=== PATIENT | female | born 1985 | race Caucasian/White ===

== ENCOUNTER → 2016-11-16 | Outpatient (CLI) | payer OTHER ==
[~2016-11-16] MED LIST: ALBU18002 INH; AMOX875T3 PO; CEPH500C PO; LEVO50TA6 PO; MOME100A INH; OFLO0.3D4 OTL; ONDA4TAB10 SL; PEDICHW50 PO; PROP1TAB PO
--- NOTE | 2016-11-16 12:36 | DIAGNOSTIC IMAGING REPORT ---
ABDOMINAL ULTRASOUND, RIGHT UPPER QUADRANT HISTORY: Left lower quadrant abdominal palpable abnormality. COMPARISON: CT of the abdomen and pelvis January 02, 2014 and abdominal ultrasound January 31, 2014. FINDINGS: No left lower quadrant abdominal wall mass was identified by sonography. No other sonographic abnormality was identified. IMPRESSION: No left lower quadrant abdominal mass identified by sonography. Continued clinical follow up to ensure stability or resolution is recommended. If interval enlargement, repeat ultrasound is recommended. Electronically signed by: Irving Weldon M.D. 11/16/2016 12:34 PM Dictated Date/Time: 11/16/2016 12:33 PM
== END | disposition home or self-care (01) ==
LOC: C.ULTR 11:57
PROVIDERS: ATTEND Obstetrics & Gynecology
DX: R19.04 Left lower quadrant abdominal swelling, mass and lump (principal)

== ENCOUNTER → 2016-11-18 | Outpatient (CLI) | payer OTHER ==
[2016-11-18 18:39] LABS: PREG INTERNAL NEGATIVE QC NEG CLEAR BACKGROUND; PREG INTERNAL POSITIVE QC POS CONTROL LINE
== END | disposition home or self-care (01) ==
LOC: C.LABSPEC 11:46
PROVIDERS: ATTEND Obstetrics & Gynecology
DX: N91.1 Secondary amenorrhea (principal)

== ENCOUNTER → 2016-12-06 | Outpatient (CLI) | payer OTHER ==
[2016-12-06 17:25] LABS: BASO % 0.3 %; BASO ABS # 0.02 K/uL (0-0.2); COMPLETE YES; EOS % 1.8 %; HEMATOCRIT 39.3 % (37-47); IG% 0.1 %; LYMPH % 37.5 %; LYMPH ABS # 2.69 K/uL (1.2-3.4); MEAN CELL VOLUME 82.2 fL (80-100); MEAN CORPUSCULAR HEMOGLOBIN 28.5 pg (25-34); MEAN CORPUSCULAR HGB CONC 34.6 g/dl (32-36); MEAN PLATELET VOLUME 11.5 fL (7.4-10.4); MONO % 6.8 %; NEUT % 53.5 %; PLATELET COUNT 208 K/uL (130-400); RED BLOOD COUNT 4.78 M/uL (4.2-5.4); WHITE BLOOD COUNT 7.17 K/uL (4.8-10.8)
[2016-12-06 17:48] LABS: THYROID STIMULATING HORMONE < 0.005 uIu/ml (0.300-4.500)
== END | disposition home or self-care (01) ==
LOC: C.LABBFT 14:56
PROVIDERS: ATTEND Internal Medicine
DX: D64.9 Anemia, unspecified (principal); R63.1 Polydipsia

== ENCOUNTER → 2016-12-09 | Outpatient (CLI) | payer OTHER ==
--- NOTE | 2016-12-09 11:41 | DIAGNOSTIC IMAGING REPORT ---
ULTRASOUND OF THE THYROID GLAND CLINICAL HISTORY: Hyperthyroidism. COMPARISON STUDY: Chest CT dated 12/12/13.. TECHNIQUE: Real-time, grayscale, and color flow sonography of the thyroid gland is performed utilizing a high-frequency linear transducer. Images are reviewed in the transverse and longitudinal planes. FINDINGS: Right lobe: The right lobe of the thyroid gland is normal in size and heterogeneous in echotexture, measuring 5.3 x 2.2 x 2.5 cm. There are numerous subcentimeter hypoechoic nodules. A hypoechoic nodule in the upper pole measures 0.8 x 0.5 x 1.5 cm. Left lobe: The left lobe of the thyroid gland is normal in size and heterogeneous in echotexture, measuring 5.1 x 1.5 x 1.6 cm. There are numerous subcentimeter hypoechoic nodules. A hypoechoic nodule in the upper pole measures 0.8 x 0.4 x 0.7 cm. A hypoechoic nodule within or adjacent to the lower pole measures 1.7 x 1.1 x 0.9 cm. An additional nodule versus a lobulation of the lower pole measures 1.7 x 1.0 x 0.9 cm. Isthmus: The thyroid isthmus is normal in appearance and measures 0.4 cm in AP diameter. Soft tissues: Scattered benign-appearing cervical lymph nodes are incidentally noted. IMPRESSION: 1. The thyroid gland is normal in size and heterogeneous in echotexture. 2. There are numerous bilateral thyroid nodules. There is a 1.7 cm hypoechoic nodule in the left lower pole for which fine-needle aspiration is recommended. 3. Sonographic follow-up of the additional nodules is recommended. Electronically signed by: Ori Key M.D. 12/09/2016 11:40 AM Dictated Date/Time: 12/09/2016 11:11 AM
[2016-12-09 12:52] LABS: ALT/SGPT 43 U/L (12-78); BLOOD UREA NITROGEN 12 mg/dl (7-18); BUN/CREATININE RATIO 21.9 (10-20); CALCIUM 9.2 mg/dl (8.5-10.1); CARBON DIOXIDE 27 mmol/L (21-32); CHLORIDE 106 mmol/L (98-107); CHOLESTEROL 156 mg/dl (0-200); CREATININE 0.54 mg/dl (0.60-1.20); GLUCOSE 73 mg/dl (70-99); POTASSIUM 4.1 mmol/L (3.5-5.1); SODIUM 141 mmol/L (136-145); TRIGLYCERIDES 56 mg/dl (0-150); VERY LOW DENSITY LIPOPROT CALC 11 mg/dl
[2016-12-09 13:04] LABS: ALKALINE PHOSPHATASE 100 U/L (45-117); AST/SGOT 34 U/L (15-37); CHOLESTEROL/HDL RATIO 2.4; HDL CHOLESTEROL 65 mg/dl; LDL CHOLESTEROL CALCULATED 80 mg/dl; THYROID STIMULATING HORMONE < 0.005 uIu/ml (0.300-4.500)
[2016-12-10 13:26] LABS: MICROSOMAL AB 261 IU/ML (<9); THYROGLOBULIN 48.5 NG/ML (2.8-40.9)
== END | disposition home or self-care (01) ==
LOC: C.ULTR 10:30
PROVIDERS: ATTEND Internal Medicine
DX: E05.90 Thyrotoxicosis, unspecified without thyrotoxic crisis or storm (principal); D64.9 Anemia, unspecified; R94.6 Abnormal results of thyroid function studies; E04.1 Nontoxic single thyroid nodule

== ENCOUNTER → 2016-12-14 | Outpatient (CLI) | payer OTHER ==
[2016-12-19 14:33] LABS: TSI 70 % baseline (<140)
== END | disposition home or self-care (01) ==
LOC: C.LAB 12:47
PROVIDERS: ATTEND Internal Medicine Endocrinology, Diabetes & Metabolism
DX: E05.90 Thyrotoxicosis, unspecified without thyrotoxic crisis or storm (principal)

== ENCOUNTER → 2016-12-16 | Day surgery (SDC) | payer BC, OTHER ==
[2016-12-15 11:52] VITALS: Ht 160 cm; Wt 62.7 kg
[~2016-12-16] VITALS: Ht 160 cm; Wt 62.7 kg
[~2016-12-16] MED LIST changes: +PROPOFOL IV EMULSION 10 MG/ML 20 ML VIAL IV ONE; +SODIUM CHLORIDE 0.9% 500ML 500 ML IV ONE
--- NOTE | 2016-12-16 10:45 | Endo History and Physical ---
History & Physical Date of Service: Dec 16, 2016. Chief Complaint: follow up/ history of CA Referring Physician: Dr Sands History of Present Illness 31 yo CF who presents for colonoscopy secondary to history of colon cancer. Past Medical History Cancer, Thyroid Disease Past Surgical History Hx Cardiac Surgery: No Hx Internal Defibrillator: No Hx Pacemaker: No Hx Abdominal Surgery: No Hx of Implantable Prosthesis: No Hx Post-Op Nausea and Vomiting: No Hx Cancer Surgery: Yes (COLON RESECTION) Hx Thoracic Surgery: No Hx Orthopedic: No Hx Urinary Tract Surgery: No Family History Polyp Social History Smoking Status: Former Smoker Hx Substance Use: No Hx Alcohol Use: No Allergies Coded Allergies: No Known Allergies (Verified , 12/15/16) Current Medications Reported Home Medications Medications Dose Route/Sig Max Daily Dose Days Date Category Dose Instructions Amoxil (Amoxicillin) 875 Mg Tab 1 Tab PO BID 10 12/15/16 Reported HAS NOT STARTED YET. Inderal (Propranolol HCl) 60 Mg Tab 60 Mg PO QAM 12/15/16 Reported NEW RX, RECENTLY STARTED Flintstones Chewable (Pediatric Multiple Vitamin W/) 1 Chw Chw 1 Tab PO QAM 09/18/16 Reported Vital Signs Weight (Kilograms): 62.73 Height (Feet): 5 Height (Inches): 3 Date Time Temp Pulse Resp B/P Pulse Ox O2 Delivery O2 Flow Rate FiO2 12/16/16 09:57 37 103 20 126/75 96 Room Air Physical Exam General Appearance: WD/WN, no apparent distress Respiratory/Chest: Auscultation: breath sounds normal Cardiovascular: Heart Auscultation: RRR Abdomen: Bowel Sounds: normal Inspection & Palpation: soft, non-distended, no tenderness, guarding & rebound Assessment and Plan Assessment: 31 yo CF who presents for colonoscopy secondary to history of colon cancer. Plan: Proceed with colonoscopy.
--- NOTE | 2016-12-16 11:17 | Discharge Instructions ---
Endoscopy Patient Instructions Date / Procedure(s) Performed Dec 16, 2016. Colonoscopy Allergy Information Coded Allergies: No Known Allergies (Verified , 12/15/16) Discharge Date / Findings Dec 16, 2016. Internal hemorrhoids Normal Sigmoid colon Anastomosis Medication Instructions OK to resume all medications today as prescribed. Reported Home Medications Medications Dose Route/Sig Max Daily Dose Days Date Category Dose Instructions Amoxil (Amoxicillin) 875 Mg Tab 1 Tab PO BID 10 12/15/16 Reported HAS NOT STARTED YET. Inderal (Propranolol HCl) 60 Mg Tab 60 Mg PO QAM 12/15/16 Reported NEW RX, RECENTLY STARTED Flintstones Chewable (Pediatric Multiple Vitamin W/) 1 Chw Chw 1 Tab PO QAM 09/18/16 Reported Provider Instructions Activity Restrictions - No exercising or heavy lifting for 24 hours. - Do not drink alcohol the day of the procedure. - Do not drive a car or operate machinery until the day after the procedure. - Do not make any important decisions or sign important papers in 24 hours after the procedure. Following Day: - Return to full activity which may include returning to work/school. Diet Start your diet with liquids and light foods (jello, soup, juice, toast). Then eat your usual diet if not nauseated. Treatment For Common After Affects For mild abdominal pain, bloating, or excessive gas: - Rest - Eat lightly - Lie on right side Follow-Up Information Follow-up with Dr Sands as scheduled Anesthesia Information What You Should Know You have had a procedure that required some medicine to reduce anxiety and discomfort. This treatment is called moderate sedation. After receiving the treatment, you may be sleepy, but you will be able to breathe on your own. The effects of the treatment may last for several hours. Follow these instructions along with Activity/Diet recommendations noted above: * Do NOT do anything where dizziness or clumsiness would be dangerous. * Rest quietly at home today, then you can be up and about tomorrow. * Have a responsible person stay with you the rest of today. * You may have had an I.V. today. If so, you may take the dressing off later today. Recommendations Call your doctor if: * Trouble breathing * Continuous vomiting for more than 24 hours * Temperature above 101 degrees * Severe abdominal pain or bloating * Pain not relieved by pain medicine ordered * There is increased drainage or redness from any incision * A large amount of rectal bleeding greater than 2-3 tablespoons. (If you had a polyp/s removed or have hemorrhoids, a small amount of blood - from the rectum is to be expected.) * You have any unanswered questions or concerns. IN THE EVENT OF A SERIOUS EMERGENCY, GO TO THE NEAREST EMERGENCY ROOM Your discharge instructions were prepared by provider Percy Bruce. Patient Instructions Signature Page Emma Villalba Patient (or Guardian) Signature/Date: I have read and understand the instructions given to me by my caregivers. Caregiver/RN/Doctor Signature/Date: The above-named patient and/or guardian has received patient instructions on this date. + Original Patient Signature Page (only) stays with chart. Please make copy for patient.
--- NOTE | 2016-12-16 11:23 | GI REPORT ---
Procedure Date: 12/16/2016 9:52 AM Procedure: Colonoscopy Indications: High risk colon cancer surveillance: Personal history of colon cancer Medicines: Monitored Anesthesia Care Complications: No immediate complications. Estimated Blood Loss: Estimated blood loss: none. Procedure: Pre-Anesthesia Assessment: - Prior to the procedure, a History and Physical was performed, and patient medications and allergies were reviewed. The patient's tolerance of previous anesthesia was also reviewed. The risks and benefits of the procedure and the sedation options and risks were discussed with the patient. All questions were answered, and informed consent was obtained. Prior Anticoagulants: The patient has taken no previous anticoagulant or antiplatelet agents. ASA Grade Assessment: II - A patient with mild systemic disease. After reviewing the risks and benefits, the patient was deemed in satisfactory condition to undergo the procedure. After I obtained informed consent, the scope was passed under direct vision. Throughout the procedure, the patient's blood pressure, pulse, and oxygen saturations were monitored continuously. The scope was introduced through the anus and advanced to the terminal ileum. The colonoscopy was performed without difficulty. The patient tolerated the procedure well. The quality of the bowel preparation was good. The terminal ileum, ileocecal valve, appendiceal orifice, and rectum were photographed. Findings: There was evidence of a prior end-to-side colo-colonic anastomosis in the sigmoid colon. This was patent and was characterized by healthy appearing mucosa. The anastomosis was traversed. Non-bleeding internal hemorrhoids were found during retroflexion. The hemorrhoids were small. Impression: - Patent end-to-side colo-colonic anastomosis, characterized by healthy appearing mucosa. - Non-bleeding internal hemorrhoids. - No specimens collected. Recommendation: - Resume previous diet. - Continue present medications. - Repeat colonoscopy in 3 years for surveillance. - Return to primary care physician as previously scheduled. Percy Bruce DO 12/16/2016 11:22:16 AM This report has been signed electronically. Note Initiated On: 12/16/2016 9:52 AM I attest to the content of the Intraoperative Record and orders documented therein, exceptions below
--- NOTE | 2016-12-16 11:33 | Anesthesiology Progress Note ---
Anesthesia Post Op Note Date & Time Dec 16, 2016 at 11:33 Vital Signs Pain Intensity: 0 Vital Signs Past 12 Hours Date Time Temp Pulse Resp B/P Pulse Ox O2 Delivery O2 Flow Rate FiO2 12/16/16 11:28 97 18 109/54 97 Room Air 12/16/16 11:13 92 16 93/49 96 Room Air 12/16/16 09:57 37 103 20 126/75 96 Room Air Notes Mental Status: alert / awake / arousable, participated in evaluation Pt Amnestic to Procedure: Yes Nausea / Vomiting: adequately controlled Pain: adequately controlled Airway Patency, RR, SpO2: stable & adequate BP & HR: stable & adequate Hydration State: stable & adequate Anesthetic Complications: no major complications apparent
[2016-12-16 11:43] VITALS: BP 118/65; PULSE 96; O2SAT 99
== END | disposition home or self-care (01) ==
LOC: C.GI 09:23
PROVIDERS: ATTEND Internal Medicine
DX: Z12.11 Encounter for screening for malignant neoplasm of colon (principal); Z85.038 Personal history of other malignant neoplasm of large intestine; Z98.0 Intestinal bypass and anastomosis status; K64.8 Other hemorrhoids; Z83.71 Family history of colonic polyps; Z87.891 Personal history of nicotine dependence

== ENCOUNTER 2017-01-14 20:03 | Emergency (ER) | payer OTHER ==
[~2017-01-14] VITALS: Ht 160 cm; Wt 63.7 kg
[~2017-01-14 20:03] MED LIST changes: -ALBU18002 INH; -CEPH500C PO; -LEVO50TA6 PO; -MOME100A INH; -OFLO0.3D4 OTL; -ONDA4TAB10 SL; -PEDICHW50 PO; -PROPOFOL IV EMULSION 10 MG/ML 20 ML VIAL IV ONE; -SODIUM CHLORIDE 0.9% 500ML 500 ML IV ONE
[2017-01-14 20:08] VITALS: TEMP 37; Ht 160 cm; Wt 63.7 kg
[2017-01-14] MEDS ORDERED: SODIUM CHLORIDE 0.9% 1000ML 1,000 ML IV STA (20:53)
[2017-01-14] MEDS ORDERED: ONDANSETRON INJ 2 MG/ML 2 ML VIAL IV STA (20:53)
[2017-01-14] MEDS ORDERED: SODIUM CHLORIDE 0.9% 1000ML 1,000 ML IV ONE (20:53)
[2017-01-14 21:02] LABS: HEMATOCRIT 40.2 % (37-47); MEAN CELL VOLUME 80.6 fL (80-100); MEAN CORPUSCULAR HEMOGLOBIN 28.1 pg (25-34); MEAN CORPUSCULAR HGB CONC 34.8 g/dl (32-36); PLATELET COUNT 196 K/uL (130-400); RED BLOOD COUNT 4.99 M/uL (4.2-5.4); WHITE BLOOD COUNT 8.98 K/uL (4.8-10.8)
[2017-01-14 21:13] LABS: URINE APPEARANCE CLEAR (CLEAR); URINE BILIRUBIN NEG (NEG); URINE COLOR YELLOW; URINE EPITHELIAL CELL AUTO >30 /lpf (0-5); URINE NITRITE NEG (NEG); UROBILINOGEN NEG (NEG)
[2017-01-14 21:20] LABS: BLOOD UREA NITROGEN 13 mg/dl (7-18); BUN/CREATININE RATIO 19.3 (10-20); CALCIUM 8.5 mg/dl (8.5-10.1); CARBON DIOXIDE 29 mmol/L (21-32); CHLORIDE 108 mmol/L (98-107); CREATININE 0.69 mg/dl (0.60-1.20); GLUCOSE 79 mg/dl (70-99); POTASSIUM 4.3 mmol/L (3.5-5.1); SODIUM 143 mmol/L (136-145)
[2017-01-14 21:21] LABS: BASO % 0.2 %; BASO ABS # 0.02 K/uL (0-0.2); COMPLETE YES; EOS % 2.2 %; IG% 0.1 %; LYMPH % 33.3 %; LYMPH ABS # 2.99 K/uL (1.2-3.4); MONO % 6.5 %; NEUT % 57.7 %
[2017-01-14 21:23] LABS: ALKALINE PHOSPHATASE 99 U/L (45-117); ALT/SGPT 22 U/L (12-78); AST/SGOT 19 U/L (15-37)
[2017-01-14 21:26] LABS: MANUAL MICROSCOPIC REQUIRED? NO; REVIEW REQ? NO
[2017-01-14 21:34] LABS: PREG INTERNAL NEGATIVE QC NEG CLEAR BACKGROUND; PREG INTERNAL POSITIVE QC POS CONTROL LINE
--- NOTE | 2017-01-14 21:53 | DIAGNOSTIC IMAGING REPORT ---
Quadrant ultrasound GALLBLADDER-ABD LIMITED CLINICAL HISTORY: RUQ pain pain. Nausea. TECHNIQUE: Ultrasound COMPARISON STUDY: None FINDINGS: Small and sludge and small amount of gravel within the gallbladder lumen. Normal caliber bile ducts.: Bile duct 3 mm. Liver is uniform. Pancreas and right kidney are unremarkable. IMPRESSION: Small amount of sludge and gravel within the gallbladder lumen. Normal caliber bile ducts. Electronically signed by: Piyush Christian M.D. 01/14/2017 9:52 PM Dictated Date/Time: 01/14/2017 9:51 PM
[2017-01-14] MEDS ORDERED: ONDA4TAB10 SL (22:35)
[2017-01-14] MEDS ORDERED: ONDANSETRON HOME PACK 4MG OD TAB PO ONE (22:45)
[2017-01-14 22:54] VITALS: BP 128/75; PULSE 76; O2SAT 100
--- NOTE | 2017-01-15 02:30 | EMERGENCY ROOM VISIT NOTE ---
History Report prepared by Evan: Susy Munguia Under the Supervision of: Dr. Sin Keller M.D. First contact with patient: 20:45 Chief Complaint: ABDOMINAL PAIN Stated Complaint: STOMACH PAIN,MIDDLE RIGHT SIDE, THROWING UP Nursing Triage Summary: pt reports she began to get nauseaous early in the week, reports "I didn't think anything of it." reports vomiting and abd pain began last night. states she has intermittent abd pain, mid abdomen radiating to epigastric area and urq. denies urinary symptoms. denies diarrhea. hx of colon cancer and thyroid problems History of Present Illness The patient is a 31 year old female who presents to the Emergency Room with complaints of constant abdominal pain beginning a few days prior to arrival. The patient states the pain is located epigastric region and right side. She has been experiencing nausea for the past week. The patient notes that last night and today after eating she vomited. She notes a sore throat and headache. The patient notes normal bowel movements. She is currently having thyroid issues and is being followed by her PCP who thinks it is from [facility], her child is 4 months old. She denies fever or urinary symptoms. The patient has a history of colon cancer 3 years ago and is in remission. Source of History: patient, family Onset: few days [employer] Position: abdomen (epigastric and right sided) Timing: constant Associated Symptoms: + headache, + nausea, + vomiting, No urinary symptoms Review of Systems See HPI for pertinent positives & negatives. A total of 10 systems reviewed and were otherwise negative. Past Medical & Surgical Medical Problems: (1) Anemia (2) Asthma (3) check labor (4) Nausea and vomiting of , antepartum (5) Normal labor (6) with 37 weeks completed gestation (7) Surgery for colon cancer Old medical records were reviewed. Nurse's notes were reviewed and I agree with. Family History Cancer Diabetes mellitus Heart disease Hypertension Social History Smoking Status: Former Smoker Alcohol Use: none Drug Use: none Marital Status: Housing Status: lives with family Occupation Status: employed Current/Historical Medications Scheduled Ondasetron Odt (Zofran Odt), 4 MG SL Q6H Pediatric Multiple Vitamin W/ (Flintstones Chewable), 1 TAB PO QAM Allergies Coded Allergies: No Known Allergies (Verified , 01/14/17) Physical Exam Vital Signs Date Time Temp Pulse Resp B/P Pulse Ox O2 Delivery O2 Flow Rate FiO2 01/14/17 22:54 76 18 128/75 100 01/14/17 21:01 63 18 124/53 98 Room Air 01/14/17 20:08 37.0 65 18 133/64 98 Room Air Physical Exam General: Non-ill appearing young female. Well developed well nourished in no acute distress, breathing comfortably on room air. Normal speech HEENT: Normal cephalic atraumatic. Pupils are equal round and reactive to light. Sclerae anicteric. Extraocular movements are intact. Oropharynx is pink with moist mucous membranes. No swelling of the mouth lips or tongue. Neck: Supple with a midline trachea. No meningeal signs or stiffness, no JVD or bruits. No Stridor. Chest: Clear to auscultation bilaterally. No wheezes or rhonchi. No increased work of breathing. Heart: regular rate and rhythm. Abdomen: Soft, mild right upper quadrant tenderness, nondistended without rebound guarding or rigidity. Healing scar in central lower abdomen from previous colon surgery. No hernia. Extremities: No cyanosis clubbing or edema. No calf tenderness or assymetry Spine/Back. Non tender to palpation. No CVA tenderness Skin: Good turgor without rashes. Neurologic exam: Cranial nerves two through 12 are intact. Motor and sensation are intact and symmetrical throughout. Medical Decision & Procedures ER Provider Diagnostic Interpretation: US results as stated below per my review and radiologist interpretation: Quadrant ultrasound GALLBLADDER-ABD LIMITED CLINICAL HISTORY: RUQ pain pain. Nausea. TECHNIQUE: Ultrasound COMPARISON STUDY: None FINDINGS: Small and sludge and small amount of gravel within the gallbladder lumen. Normal caliber bile ducts.: Bile duct 3 mm. Liver is uniform. Pancreas and right kidney are unremarkable. IMPRESSION: Small amount of sludge and gravel within the gallbladder lumen. Normal caliber bile ducts. Electronically signed by: Piyush Christian M.D. 01/14/2017 9:52 PM Dictated Date/Time: 01/14/2017 9:51 PM Laboratory Results 01/14/17 20:49 Red Blood Count 4.99, Mean Corpuscular Volume 80.6, Mean Corpuscular Hemoglobin 28.1, Mean Corpuscular Hemoglobin Concent 34.8, Mean Platelet Volume 11.0, Neutrophils (%) (Auto) 57.7, Lymphocytes (%) (Auto) 33.3, Monocytes (%) (Auto) 6.5, Eosinophils (%) (Auto) 2.2, Basophils (%) (Auto) 0.2, Neutrophils # (Auto) 5.18, Lymphocytes # (Auto) 2.99, Monocytes # (Auto) 0.58, Eosinophils # (Auto) 0.20, Basophils # (Auto) 0.02 01/14/17 20:49 Test 01/14/17 20:45 01/14/17 20:49 Urine Color YELLOW Urine Appearance CLEAR (CLEAR) Urine pH 7.0 (4.5-7.5) Urine Specific [place] 1.000 (1.000-1.030) Urine Protein NEG (NEG) Urine Glucose (UA) NEG (NEG) Urine Ketones NEG (NEG) Urine Occult Blood 3+ (NEG) Urine Nitrite NEG (NEG) Urine Bilirubin NEG (NEG) Urine Urobilinogen NEG (NEG) Urine Leukocyte Esterase SMALL (NEG) Urine WBC (Auto) 5-10 /hpf (0-5) Urine RBC (Auto) 0-4 /hpf (0-4) Urine Hyaline Casts (Auto) 1-5 /lpf (0-5) Urine Epithelial Cells (Auto) >30 /lpf (0-5) Urine Bacteria (Auto) 1+ (NEG) White Blood Count 8.98 K/uL (4.8-10.8) Red Blood Count 4.99 M/uL (4.2-5.4) Hemoglobin 14.0 g/dL (12.0-16.0) Hematocrit 40.2 % (37-47) Mean Corpuscular Volume 80.6 fL (80-100) Mean Corpuscular Hemoglobin 28.1 pg (25-34) Mean Corpuscular Hemoglobin Concent 34.8 g/dl (32-36) Platelet Count 196 K/uL (130-400) Mean Platelet Volume 11.0 fL (7.4-10.4) Neutrophils (%) (Auto) 57.7 % Lymphocytes (%) (Auto) 33.3 % Monocytes (%) (Auto) 6.5 % Eosinophils (%) (Auto) 2.2 % Basophils (%) (Auto) 0.2 % Neutrophils # (Auto) 5.18 K/uL (1.4-6.5) Lymphocytes # (Auto) 2.99 K/uL (1.2-3.4) Monocytes # (Auto) 0.58 K/uL (0.11-0.59) Eosinophils # (Auto) 0.20 K/uL (0-0.5) Basophils # (Auto) 0.02 K/uL (0-0.2) RDW Standard Deviation 36.7 fL (36.4-46.3) RDW Coefficient of Variation 12.7 % (11.5-14.5) Immature Granulocyte % (Auto) 0.1 % Immature Granulocyte # (Auto) 0.01 K/uL (0.00-0.02) Red Blood Cell Morphology Unremarkable Anion Gap 6.0 mmol/L (3-11) Est Creatinine Clear Calc Drug Dose 107.1 ml/min Estimated GFR () 135.4 Estimated GFR (Non- 116.8 BUN/Creatinine Ratio 19.3 (10-20) Calcium Level 8.5 mg/dl (8.5-10.1) Total Bilirubin 0.3 mg/dl (0.2-1) Direct Bilirubin < 0.1 mg/dl (0-0.2) Aspartate Amino Transf (AST/SGOT) 19 U/L (15-37) Alanine Aminotransferase (ALT/SGPT) 22 U/L (12-78) Alkaline Phosphatase 99 U/L (45-117) Total Protein 6.7 gm/dl (6.4-8.2) Albumin 3.5 gm/dl (3.4-5.0) Lipase 139 U/L (73-393) Human Chorionic Gonadotropin, Qual NEG (NEG) Laboratory studies as stated above per my review. Medications Administered Medications (Trade) Dose Ordered Sig/Roseanna Route Start Time Stop Time Status Last Admin Dose Admin Sodium Chloride (Nss 1000ml) 1,000 ml @ 999 mls/hr Q1H1M STAT IV 01/14/17 20:53 01/14/17 21:53 DC 01/14/17 21:01 999 MLS/HR Ondansetron HCl (ZOFRAN ODT 4MG Home Pack) 1 homepa UD ONCE PO 01/14/17 22:45 01/14/17 22:46 DC 01/14/17 22:51 1 HOMEPACK ED Course 2045: Past medical records reviewed. The patient was evaluated in room C2, and a complete history and physical examination were performed. 2052: Sodium Chloride 1,000 ml @ 200 mls/hr IV, Sodium Chloride 1,000 ml @ 999 mls/hr IV. 2211: I reevaluated the patient and she is feeling better. 2244: Zofran ODT 4 mg Home Pack 1 homepack PO. 2247: Upon reevaluation, the patient is hemodynamically stable. I discussed the results and treatment plan with the patient. She verbalized agreement of the treatment plan. The patient was discharged home. Medical Decision Differentials include, but are not limited to; gall bladder disease, pancreatitis, bowel obstruction, infection, electrolyte or metabolic abnormality. This patient comes in as described above. She says some nausea and right upper quadrant pain. She feels better at present and it seem to be worse with eating. She has a history of colon cancer remotely, she's had normal bowel movements and she has nothing to suggest obstruction. She has no lower abdominal tenderness and incisions look well and does not suggest hernia. IV access established and multiple blood testing was obtained. She was hydrated with IV normal saline. She has no significant elevation white count or fever. She's not significantly anemic. Her liver functions LFTs are normal. Her gallbladder does have some sludge but no other abnormality seen. This may be related to her gallbladder. I recommend she follow up with her regular doctor and use Zofran if needed for nausea. have a mild diet and avoid fatty or greasy or spicy foods. She is breast-feeding. She may ultimately need to do a HIDA scan. I'm unsure if they will do that while she is breast-feeding however . I told her to follow up with her GI specialist with Dr. Bruce on Monday at this point she has nothing to suggest this is related to colon cancer or bowel obstruction but I encouraged her return if she has increasing pain, fever or chills, worsening of symptoms, any new problems or concerns. She is happy with plan discharge to home. Impression Primary Impression: Right upper quadrant abdominal pain Scribe Attestation The scribe's documentation has been prepared under my direction and personally reviewed by me in its entirety. I confirm that the note above accurately reflects all work, treatment, procedures, and medical decision making performed by me. Departure Information Dispostion Home / Self-Care Prescriptions Ondasetron Odt (ZOFRAN ODT) 4 Mg Tab 4 MG SL Q6H for Nausea, #14 TAB Prov: Sin Keller M.D. 01/14/17 Referrals Sathish Sands M.D. (PCP) Forms HOME CARE DOCUMENTATION FORM, IMPORTANT VISIT INFORMATION Patient Instructions My [facility] Additional Instructions Rest. Drink plenty of fluids. Mild diet. Avoid greasy or fatty foods Use Zofran 4 mg every 6 hours if needed for nausea vomiting Return to ER if: Increasing pain, fever, worsening symptoms, any new problems or concerns. Follow-up with your doctor Monday for recheck
== END 2017-01-14 22:54 | disposition home or self-care (01) ==
LOC: C.EDB 20:05 → C.EDC 22:54
DX: R10.11 Right upper quadrant pain (principal); J45.909 Unspecified asthma, uncomplicated; Z85.038 Personal history of other malignant neoplasm of large intestine; Z80.9 Family history of malignant neoplasm, unspecified; Z83.3 Family history of diabetes mellitus; Z82.49 Family history of ischemic heart disease and other diseases of the circulatory system; Z87.891 Personal history of nicotine dependence; Z98.890 Other specified postprocedural states

== ENCOUNTER → 2017-01-16 | Outpatient (CLI) | payer OTHER ==
[~2017-01-16] MED LIST changes: +ALBU18002 INH; -AMOX875T3 PO; +CEPH500C PO; +LEVO50TA6 PO; +MOME100A INH; +OFLO0.3D4 OTL; +ONDA4TAB10 SL; +PEDICHW50 PO; -PROP1TAB PO
== END | disposition home or self-care (01) ==
LOC: C.LABBFT 15:31
PROVIDERS: ATTEND Internal Medicine Endocrinology, Diabetes & Metabolism
DX: E05.90 Thyrotoxicosis, unspecified without thyrotoxic crisis or storm (principal); Z85.038 Personal history of other malignant neoplasm of large intestine

== ENCOUNTER → 2017-01-24 | Outpatient (CLI) | payer OTHER ==
--- NOTE | 2017-01-24 11:22 | Discharge Instructions ---
Discharge Instructions Procedure Procedure Date: Jan 24, 2017. Reason for visit: Multiple Thyroid Nodules. Discharge Discharge Date: Jan 24, 2017. Discharge Diagnosis: s/p left thyroid FNA Instructions Activity Recommendations: No limitations Return to School/Work: no limitations Recommended Home Diet: No Limitations Provider Instructions: ACTIVITY RECOMMENDATIONS: * Rest today. * Resume regular activity in one day. MEDICATIONS: * May take Tylenol or Ibuprofen as needed for pain. DIET: * Resume previous diet. SPECIAL CARE INSTRUCTIONS: Call your doctor if: * Temperature above 101 degrees F. * Pain not relieved by pain medicine ordered. * Increased drainage or redness from incision. * Notify your doctor with any questions or concerns. Call your doctor or go to the nearest Emergency Department if you experience: * Increased chest pain or shortness of breath. FOLLOW UP VISIT: Follow-up with Referring Physician as scheduled. Allergies Coded Allergies: No Known Allergies (Verified , 01/14/17) Mahesh Solomon Recommendations: Call your doctor if: * Temperature above 101 degrees * Pain not relieved by pain medicine ordered * There is increased drainage or redness from any incision * You have any unanswered questions or concerns. Your Doctors Instructions noted above were prepared by provider Irving Weldon. Patient Signature Section: Patient Instructions Signature Page Emma Villalba Patient (or Guardian) Signature/Date: I have read and understand the instructions given to me by my caregivers. Caregiver/RN/Doctor Signature/Date: The above-named patient and/or guardian has received patient instructions on this date. + Original Patient Signature Page (only) stays with chart. Please make copy for patient.
--- NOTE | 2017-01-24 11:39 | DIAGNOSTIC IMAGING REPORT ---
ULTRASOUND GUIDED FINE NEEDLE ASPIRATION OF LEFT LOBE THYROID CYST CLINICAL HISTORY: Multiple thyroid nodules. COMPARISON STUDY: Thyroid ultrasound December 09, 2016. PROCEDURE: The procedure, risks and benefits were discussed with the patient. The patient agreed to the procedure and informed written consent was obtained. Procedure was performed by Dr. Weldon following a timeout. Sonography of the thyroid gland again demonstrated the 1.7 cm cystic lesion either arising from or adjacent to the left lobe of the thyroid gland. This appeared entirely cystic by ultrasound. Skin was prepped and draped in sterile fashion and local anesthesia was achieved with 1% lidocaine. Under direct ultrasound guidance, 1 25-gauge fine needle aspiration was performed. Fluid was obtained. No significant cellularity was noted on preliminary pathology review. However, no additional sampling was performed given the benign appearance of this lesion. IMPRESSION: Ultrasound guided fine needle aspiration of 1.7 cm cystic lesion either arising from or adjacent to the left lobe of the thyroid gland. Only one pass was performed given benign imaging appearance of this lesion. Electronically signed by: Irving Weldon M.D. 01/24/2017 11:37 AM Dictated Date/Time: 01/24/2017 11:35 AM
== END | disposition home or self-care (01) ==
LOC: C.ULTR 10:23
PROVIDERS: ATTEND Physician Assistant Medical
DX: E04.2 Nontoxic multinodular goiter (principal)

== ENCOUNTER → 2017-01-30 | Outpatient (CLI) | payer OTHER | END | disposition home or self-care (01) | LOC: C.LABSPEC 18:11 | PROVIDERS: ATTEND Nurse Practitioner | DX: R39.9 Unspecified symptoms and signs involving the genitourinary system (principal) ==

== ENCOUNTER 2017-02-10 05:09 | Inpatient (IN) | payer OTHER ==
[2017-02-10] VITALS (8 sets, daily range): BP systolic 110–136; BP diastolic 61–87; PULSE 50–74; TEMP 36.3–36.7; O2SAT 95–100; Ht 160 cm; Wt 57.4 kg
[~2017-02-10] VITALS: Ht 160 cm; Wt 57.4 kg
[~2017-02-10 05:09] MED LIST changes: -ALBU18002 INH; -CEPH500C PO; -LEVO50TA6 PO; -MOME100A INH; -OFLO0.3D4 OTL; -PEDICHW50 PO
[2017-02-10] MEDS ORDERED: SODIUM CHLORIDE 0.9% 1000ML 1,000 ML IV STA (05:24)
[2017-02-10] MEDS ORDERED: ONDANSETRON INJ 2 MG/ML 2 ML VIAL IV STA (05:24)
[2017-02-10] MEDS ORDERED: HYDROmorphone INJ 1 MG/ML SYR IV STA (05:24)
--- NOTE | 2017-02-10 05:36 | EMERGENCY ROOM VISIT NOTE ---
History Report prepared by Evan: Libertad Bartholomew Under the Supervision of: Dr. Feli Hernandez M.D. First contact with patient: 05:21 Chief Complaint: ABDOMINAL PAIN Stated Complaint: ABD PAIN Nursing Triage Summary: Patient reports upper mid abdominal pain that woke her up from sleep at 0400. Patient reports nausea as well. Patient breastfeeds. History of Present Illness The patient is a 31 year old female who presents to the Emergency Room with complaints of constant right upper quadrant abdominal pain starting about an hour and a half ago. She woke up due to the pain. She notes the pain is now starting to radiate to her back. She had burger pieter, pizza, and a peanut butter sandwich yesterday. She denies fevers, chills, or any other complaints. She has a history of gallbladder attack but her current symptoms are much more severe. She had a CT scan on January 14 which showed gallbladder sludge and gallstones. She is currently her baby is almost 5 months old. She denies any chance of . Source of History: patient Onset: about an hour and a half ago Position: abdomen (RUQ) Timing: constant Associated Symptoms: No chills, No fevers Review of Systems See HPI for pertinent positives & negatives. A total of 10 systems reviewed and were otherwise negative. Past Medical & Surgical Medical Problems: (1) Anemia (2) Asthma (3) check labor (4) Nausea and vomiting of , antepartum (5) Normal labor (6) with 37 weeks completed gestation (7) Surgery for colon cancer Family History Cancer Diabetes mellitus Heart disease Hypertension Social History Smoking Status: Never Smoker Alcohol Use: none Drug Use: none Marital Status: Housing Status: lives with family Occupation Status: employed Current/Historical Medications Scheduled Ondasetron Odt (Zofran Odt), 4 MG SL Q6H Pediatric Multiple Vitamin W/ (Flintstones Chewable), 1 TAB PO QAM Allergies Coded Allergies: No Known Allergies (Verified , 02/10/17) Physical Exam Vital Signs Date Time Temp Pulse Resp B/P Pulse Ox O2 Delivery O2 Flow Rate FiO2 02/10/17 06:47 60 16 113/63 97 Room Air 02/10/17 05:50 54 02/10/17 05:12 36.6 77 18 120/80 96 Room Air Physical Exam Vital signs reviewed. General: Appears to be in some discomfort. HEENT: No scleral icterus, PERRLA, neck supple. Atraumatic. Cardiovascular: Regular rate and rhythm, no extra sounds. Pulmonary: Clear to auscultation bilaterally, normal work of breathing. Abdomen: Soft, right upper quadrant tenderness, nondistended, positive bowel sounds. Musculoskeletal: Atraumatic, no peripheral edema. Neurologic: Patient awake alert and oriented x 3 Skin: Warm, dry, no rash Medical Decision & Procedures ER Provider Diagnostic Interpretation: US results as stated below per my review and radiologist interpretation: US RUQ 4 mm calculus seen within the distal common bowel duct suggesting choledocholithiasis. The common bile duct measures up to 4.7 mm. Small echogenicities are seen within the gallbladder wall at the fundus with probable twinkle artifact suggesting adenomyomatosis. The partially visualized pancreas, liver, and right kidney are unremarkable. Radiologist: Oscar Marquez MD Laboratory Results 02/10/17 05:35 Red Blood Count 5.50, Mean Corpuscular Volume 82.9, Mean Corpuscular Hemoglobin 28.9, Mean Corpuscular Hemoglobin Concent 34.9, Mean Platelet Volume 11.0, Neutrophils (%) (Auto) 53.1, Lymphocytes (%) (Auto) 35.2, Monocytes (%) (Auto) 7.7, Eosinophils (%) (Auto) 3.3, Basophils (%) (Auto) 0.4, Neutrophils # (Auto) 5.37, Lymphocytes # (Auto) 3.56, Monocytes # (Auto) 0.78, Eosinophils # (Auto) 0.33, Basophils # (Auto) 0.04 02/10/17 05:35 Test 02/10/17 05:35 02/10/17 05:45 White Blood Count 10.11 K/uL (4.8-10.8) Red Blood Count 5.50 M/uL (4.2-5.4) Hemoglobin 15.9 g/dL (12.0-16.0) Hematocrit 45.6 % (37-47) Mean Corpuscular Volume 82.9 fL (80-100) Mean Corpuscular Hemoglobin 28.9 pg (25-34) Mean Corpuscular Hemoglobin Concent 34.9 g/dl (32-36) Platelet Count 166 K/uL (130-400) Mean Platelet Volume 11.0 fL (7.4-10.4) Neutrophils (%) (Auto) 53.1 % Lymphocytes (%) (Auto) 35.2 % Monocytes (%) (Auto) 7.7 % Eosinophils (%) (Auto) 3.3 % Basophils (%) (Auto) 0.4 % Neutrophils # (Auto) 5.37 K/uL (1.4-6.5) Lymphocytes # (Auto) 3.56 K/uL (1.2-3.4) Monocytes # (Auto) 0.78 K/uL (0.11-0.59) Eosinophils # (Auto) 0.33 K/uL (0-0.5) Basophils # (Auto) 0.04 K/uL (0-0.2) RDW Standard Deviation 40.3 fL (36.4-46.3) RDW Coefficient of Variation 13.4 % (11.5-14.5) Immature Granulocyte % (Auto) 0.3 % Immature Granulocyte # (Auto) 0.03 K/uL (0.00-0.02) Anion Gap 6.0 mmol/L (3-11) Estimated GFR () 106.6 Estimated GFR (Non- 91.9 BUN/Creatinine Ratio 17.8 (10-20) Calcium Level 8.5 mg/dl (8.5-10.1) Total Bilirubin 0.3 mg/dl (0.2-1) Direct Bilirubin < 0.1 mg/dl (0-0.2) Aspartate Amino Transf (AST/SGOT) 32 U/L (15-37) Alanine Aminotransferase (ALT/SGPT) 25 U/L (12-78) Alkaline Phosphatase 117 U/L (45-117) Total Protein 7.4 gm/dl (6.4-8.2) Albumin 3.9 gm/dl (3.4-5.0) Lipase 154 U/L (73-393) Human Chorionic Gonadotropin, Qual NEG (NEG) Urine Color DK YELLOW Urine Appearance CLOUDY (CLEAR) Urine pH 5.5 (4.5-7.5) Urine Specific [place] 1.032 (1.000-1.030) Urine Protein NEG (NEG) Urine Glucose (UA) NEG (NEG) Urine Ketones NEG (NEG) Urine Occult Blood NEG (NEG) Urine Nitrite NEG (NEG) Urine Bilirubin NEG (NEG) Urine Urobilinogen NEG (NEG) Urine Leukocyte Esterase SMALL (NEG) Urine WBC (Auto) >30 /hpf (0-5) Urine RBC (Auto) 0-4 /hpf (0-4) Urine Hyaline Casts (Auto) 1-5 /lpf (0-5) Urine Epithelial Cells (Auto) >30 /lpf (0-5) Urine Bacteria (Auto) 2+ (NEG) Urine Pathogenic Casts /lpf (0) Urine Mucus PRESENT (NONE PRSENT) Urine Yeast (Auto) BUDDING (NONE PRSENT) Laboratory results per my review. Medications Administered Medications (Trade) Dose Ordered Sig/Roseanna Route Start Time Stop Time Status Last Admin Dose Admin Hydromorphone HCl (Dilaudid Inj) 1 mg NOW STAT IV 02/10/17 05:24 02/10/17 05:26 DC 02/10/17 05:41 1 MG Ondansetron HCl 4 mg 4 mg NOW STAT IV 02/10/17 05:24 02/10/17 05:26 DC 02/10/17 05:40 4 MG Sodium Chloride (Nss 1000ml) 1,000 ml @ 200 mls/hr Q5H STAT IV 02/10/17 05:24 02/10/17 10:23 02/10/17 05:42 200 MLS/HR ED Course 0521: Past medical records reviewed. The patient was evaluated in room B02. A complete history and physical examination was performed. 0524 Sodium Chloride 1000 ml @ 200 mls/hr IV, Zofran Inj 4 mg IV, Dilaudid Inj 1 mg IV 0723: Upon reevaluation, the patient is resting comfortably. I discussed laboratory and radiographic results with her. She verbalized agreement of the treatment plan. [facility] The patient will be evaluated for further management and care. Medical Decision Differential diagnosis: Etiologies such as appendicitis, diverticulitis, PUD, biliary pathology, UTI, pancreatitis, obstruction, mesenteric ischemia, aortic pathology, infections, inflammatory bowel disease, renal colic, as well as others were entertained. This patient was evaluated and appeared to be in significant discomfort. IV access was obtained and laboratory work was drawn. The patient was placed on the meat curer and hydrated with normal saline solution. She was given IV Dilaudid and IV Zofran for her discomforts. An ultrasound of right upper quadrant was performed and reveals a 4 mm calculus in the distal common bile duct. Laboratory work does not reveal any obstructive change at this point. The patient had no significant complaint of pain on my reevaluation. She is tender to palpation yet of the right upper quadrant. I have consulted the hospitalist service, Dr. Walsh, and left a message for Dr. Mcduffie of gastroenterology in the operating suite. The patient will be admitted to the hospitalist service, she is aware of the plan and agrees. Consults Time Called: 720 Consulting Physician: Dr. Perdomo of the [facility] Hospitalist Service Returned Call: [phone] [facility]. Impression Primary Impression: Biliary obstruction Scribe Attestation The scribe's documentation has been prepared under my direction and personally reviewed by me in its entirety. I confirm that the note above accurately reflects all work, treatment, procedures, and medical decision making performed by me. Departure Information Dispostion Being Evaluated By Hospitalist Referrals Sathish Sands M.D. (PCP) Patient Instructions My [facility]
[2017-02-10 05:52] LABS: BASO % 0.4 %; BASO ABS # 0.04 K/uL (0-0.2); COMPLETE YES; EOS % 3.3 %; HEMATOCRIT 45.6 % (37-47); IG% 0.3 %; LYMPH % 35.2 %; LYMPH ABS # 3.56 K/uL (1.2-3.4); MEAN CELL VOLUME 82.9 fL (80-100); MEAN CORPUSCULAR HEMOGLOBIN 28.9 pg (25-34); MEAN CORPUSCULAR HGB CONC 34.9 g/dl (32-36); MONO % 7.7 %; NEUT % 53.1 %; PLATELET COUNT 166 K/uL (130-400); WHITE BLOOD COUNT 10.11 K/uL (4.8-10.8)
[2017-02-10 06:02] LABS: ALT/SGPT 25 U/L (12-78); AST/SGOT 32 U/L (15-37); BLOOD UREA NITROGEN 15 mg/dl (7-18); BUN/CREATININE RATIO 17.8 (10-20); CALCIUM 8.5 mg/dl (8.5-10.1); CARBON DIOXIDE 31 mmol/L (21-32); CHLORIDE 105 mmol/L (98-107); CREATININE 0.85 mg/dl (0.60-1.20); GLUCOSE 107 mg/dl (70-99); POTASSIUM 3.5 mmol/L (3.5-5.1); SODIUM 142 mmol/L (136-145)
[2017-02-10 06:05] LABS: ALKALINE PHOSPHATASE 117 U/L (45-117)
[2017-02-10 06:16] LABS: PREG INTERNAL NEGATIVE QC NEG CLEAR BACKGROUND; PREG INTERNAL POSITIVE QC POS CONTROL LINE
[2017-02-10 07:05] LABS: URINE APPEARANCE CLOUDY (CLEAR); URINE BILIRUBIN NEG (NEG); URINE COLOR DK YELLOW; URINE EPITHELIAL CELL AUTO >30 /lpf (0-5); URINE NITRITE NEG (NEG); URINE PH 5.5 (4.5-7.5); URINE SPECIFIC GRAVITY 1.032 (1.000-1.030); UROBILINOGEN NEG (NEG); ZZUR CULT IF INDIC CLEAN CATCH YES
[2017-02-10 07:09] LABS: MANUAL MICROSCOPIC REQUIRED? NO; REVIEW REQ? YES
[2017-02-10 07:35] LABS: URINE MUCUS PRESENT (NONE PRSENT)
--- NOTE | 2017-02-10 07:37 | DIAGNOSTIC IMAGING REPORT ---
ABDOMINAL ULTRASOUND, RIGHT UPPER QUADRANT HISTORY: RUQ pain. COMPARISON: Abdominal ultrasound 01/14/2017. FINDINGS: Pancreas: The pancreatic tail is obscured by overlying bowel gas. The remaining portions of the pancreas are within normal limits. Liver: Unremarkable. Gallbladder: No gallbladder wall thickening. Tiny stones/sludge within the gallbladder. Mild thickening and punctate densities within the fundus of the gallbladder suggestive of adenomyomatosis. CBD: 4.7 mm. There is a 4 mm stone within the distal common bile duct. Right kidney: No hydronephrosis. IMPRESSION: 1. A 4 mm stone within the distal common bile duct. 2. Tiny stones/sludge within the gallbladder. Electronically signed by: Bryan George M.D. 02/10/2017 7:35 AM Dictated Date/Time: 02/10/2017 7:27 AM
[2017-02-10] MEDS ORDERED: ONDANSETRON INJ 2 MG/ML 2 ML VIAL IV PRN ×3 (08:30→18:15)
[2017-02-10] MEDS ORDERED: MAGNESIUM HYDROXIDE SUSP 30 ML UDC PO PRN (08:30)
[2017-02-10] MEDS ORDERED: ALBUTEROL HFA 8 GM INHALER INH PRN (08:30)
[2017-02-10] MEDS ORDERED: MoRPHine SULFATE 4 MG/ML 1 ML CARP\\VIAL IV PRN (08:30)
[2017-02-10] MEDS ORDERED: ALUMINUM/MAGNESIUM/SIMETH (MAALOX MAX) 30 ML UDC PO PRN (08:30)
--- NOTE | 2017-02-10 08:33 | History and Physical ---
History & Physical Date & Time of Service: Feb 10, 2017 at 08:00 Chief Complaint: Abd Pain Primary Care Physician: Sathish Sands M.D. History of Present Illness Patient is a 31 y.o.F PMHX of recent child in , Metastatic Colon Ca s/p Hemicolectomy in 2013 adn Asthma who presents with abdominal pain. Patient presented to the ED 2 weeks ago with with similar symptoms and was found to have gallstones. Patient at guamanian fries, hamburger and a pizza yesterday and awoke this am with mid epigastric abdominal pain that radiated to her right side. Patient started vomiting at home and preceded to the ED in which she continued to vomit. She states symptoms did not subside until receiving pain medication and antiemetics in the ED. She does have a hx of metastatic colon ca however denies any melan or BRBPR. She states she did have bowel movement this am however reports loose stools starting 1-2 months ago. Patient was scheduled to see general surgery on 02.08.17 however missed the appointment. Past Medical/Surgical History Medical Problems: (1) Anemia Status: Chronic (2) Asthma Status: Chronic (3) Surgery for colon cancer Status: Resolved Family History Cancer Diabetes mellitus Heart disease Hypertension Social History Smoking Status: Never Smoker Drug Use: none Marital Status: Housing status: lives with family Occupational Status: employed Immunizations History of Influenza Vaccine: Yes Influenza Vaccine Date: Oct 15, 2013 History of Tetanus Vaccine?: Yes History of Pneumococcal: No History of Hepatitis B Vaccine: Yes Multi-Drug Resistant Organisms History of MDRO: No Allergies Coded Allergies: No Known Allergies (Verified , 02/10/17) Home Medications Scheduled Ondasetron Odt (Zofran Odt), 4 MG SL Q6H Pediatric Multiple Vitamin W/ (Flintstones Chewable), 1 TAB PO QAM Review of Systems Constitutional: + sweats, No chills, No fever Eyes: No worsening of vision ENT: No hearing loss Respiratory: + shortness of breath, No cough, No sputum Cardiovascular: No chest pain Abdomen: + diarrhea, + nausea, + pain, + vomiting, No GI bleeding Genitourinary - Female: No dysuria, No urinary frequency Psychiatric: No depression symptoms Endocrine: No fatigue Hematologic / Lymphatic: No abnormal bleeding/bruising Integumentary: No itch, No rash Physical Exam Vital Signs Date Time Temp Pulse Resp B/P Pulse Ox O2 Delivery O2 Flow Rate FiO2 02/10/17 06:47 60 16 113/63 97 Room Air 02/10/17 05:50 54 02/10/17 05:12 36.6 77 18 120/80 96 Room Air General Appearance: WD/WN, no apparent distress Head: normocephalic Eyes: normal inspection ENT: normal ENT inspection Neck: supple Respiratory/Chest: chest non-tender Cardiovascular: regular rate, rhythm, no edema Abdomen/GI: normal bowel sounds, non tender, soft, no pulsatile mass, + tenderness Back: normal inspection Extremities/Musculoskelatal: normal inspection, no calf tenderness Neurologic/Psych: customer service rep II-XII nml as tested, no motor/sensory deficits, alert, oriented x 3 Skin: normal color, warm/dry, no rash Lymphatic: no adenopathy Diagnostics Laboratory Results Results Past 24 Hours Test 02/10/17 05:35 02/10/17 05:45 Range/Units White Blood Count 10.11 4.8-10.8 K/uL Red Blood Count 5.50 4.2-5.4 M/uL Hemoglobin 15.9 12.0-16.0 g/dL Hematocrit 45.6 37-47 % Mean Corpuscular Volume 82.9 80-100 fL Mean Corpuscular Hemoglobin 28.9 25-34 pg Mean Corpuscular Hemoglobin Concent 34.9 32-36 g/dl Platelet Count 166 130-400 K/uL Mean Platelet Volume 11.0 7.4-10.4 fL Neutrophils (%) (Auto) 53.1 % Lymphocytes (%) (Auto) 35.2 % Monocytes (%) (Auto) 7.7 % Eosinophils (%) (Auto) 3.3 % Basophils (%) (Auto) 0.4 % Neutrophils # (Auto) 5.37 1.4-6.5 K/uL Lymphocytes # (Auto) 3.56 1.2-3.4 K/uL Monocytes # (Auto) 0.78 0.11-0.59 K/uL Eosinophils # (Auto) 0.33 0-0.5 K/uL Basophils # (Auto) 0.04 0-0.2 K/uL RDW Standard Deviation 40.3 36.4-46.3 fL RDW Coefficient of Variation 13.4 11.5-14.5 % Immature Granulocyte % (Auto) 0.3 % Immature Granulocyte # (Auto) 0.03 0.00-0.02 K/uL Sodium Level 142 136-145 mmol/L Potassium Level 3.5 3.5-5.1 mmol/L Chloride Level 105 98-107 mmol/L Carbon Dioxide Level 31 21-32 mmol/L Anion Gap 6.0 3-11 mmol/L Blood Urea Nitrogen 15 7-18 mg/dl Creatinine 0.85 0.60-1.20 mg/dl Estimated GFR () 106.6 Estimated GFR (Non- 91.9 BUN/Creatinine Ratio 17.8 10-20 Random Glucose 107 70-99 mg/dl Calcium Level 8.5 8.5-10.1 mg/dl Total Bilirubin 0.3 0.2-1 mg/dl Direct Bilirubin < 0.1 0-0.2 mg/dl Aspartate Amino Transf (AST/SGOT) 32 15-37 U/L Alanine Aminotransferase (ALT/SGPT) 25 12-78 U/L Alkaline Phosphatase 117 45-117 U/L Total Protein 7.4 6.4-8.2 gm/dl Albumin 3.9 3.4-5.0 gm/dl Lipase 154 73-393 U/L Human Chorionic Gonadotropin, Qual NEG NEG Urine Color DK YELLOW Urine Appearance CLOUDY CLEAR Urine pH 5.5 4.5-7.5 Urine Specific [place] 1.032 1.000-1.030 Urine Protein NEG NEG Urine Glucose (UA) NEG NEG Urine Ketones NEG NEG Urine Occult Blood NEG NEG Urine Nitrite NEG NEG Urine Bilirubin NEG NEG Urine Urobilinogen NEG NEG Urine Leukocyte Esterase SMALL NEG Urine WBC (Auto) >30 0-5 /hpf Urine RBC (Auto) 0-4 0-4 /hpf Urine Hyaline Casts (Auto) 1-5 0-5 /lpf Urine Epithelial Cells (Auto) >30 0-5 /lpf Urine Bacteria (Auto) 2+ NEG Urine Pathogenic Casts 0 /lpf Urine Mucus PRESENT NONE PRSENT Urine Yeast (Auto) BUDDING NONE PRSENT Microbiology Results 02/10/17 Urine Culture, Received Pending Diagnostic Radiology Abdominal Ultrasound IMPRESSION: 1. A 4 mm stone within the distal common bile duct. 2. Tiny stones/sludge within the gallbladder. Impression Assessment and Plan Patient is a 31 y.o.f who presents with biliary colic found to have cholelithiasis Cholelithiasis - admit to med/surg - consult GI for evaluation of ERCP - patient was scheduled to see general surgery for evaluation of colonoscopy - consult general surgery - NPO - zofran prn - pain control with morphine prn - start IVF hydration with NSS @125 cc/hour + U/A - contaminated - recheck u/a /hold antibiotics for now Diarrhea - check c-diff Hx of Metastatic Colon CA s/p Colectomy - do not believe attributing to presenting symptoms - GI/surgery being consulted PPx- lovenox Full Code Level of Care Med/Surg Resuscitation Status FULL RESUSCITATION VTE Prophylaxis Risk Level: Low Given or contraindicated: Enoxaparin (Lovenox)SQ Social Service Consult None Apply
[2017-02-10 09:21] LABS: PROTHROMBIN TIME (PATIENT) 10.9 SECONDS (9.0-12.0)
[2017-02-10] MEDS ORDERED: SODIUM CHLORIDE 0.9% 1000ML 1,000 ML IV SCH (10:00)
--- NOTE | 2017-02-10 10:04 | Gastrointestinal Consultation ---
Gastrointestinal Consultation Date of Consultation: Feb 10, 2017 Attending Physician: Summer Perdomo Consulting Physician: Jacob Mcduffie Reason for Consultation: Biliary stone History of Present Illness Patient is a 31 year old female w PMHx of colon ca s/p L hemicolectomy in 2013 and completed Xeloda chemo 06/2014, asthma, anemia, who presented to ED w c/o severe abd pain. She states the pain woke her up around 4AM today. Pain is sharp , and started around epigastric radiating to RUQ area. She notes some chills, but no fever, + nausea, vomiting. Denies any sick contact or changes in bowel habit changes. She just had a colonoscopy by Dr. Bruce on 11/2016 - unremarkable exam , not due for another f/u in 3 yrs time. She denies any issues w rectal bleeding, bloody stools. Labs showed WBC 10.2. H/H stable. Chem panel including LFTs normal. UA w leukocytes esterase, WBC, budding yeast, Urine culture pending. She had gallbladder u/s which showed tiny stones/sludge in gallbladder, adenomyomatosis , CBD 4.7mm, 4mm distal bile duct stone. She reported she was supposed to be scheduled for Surgery appt for possible cholecystectomy but missed her previous appt. Currently she appears to be comfortable laying in bed. Reports abd pain is much improved though still slightly present. No more n/v. Past Medical/Surgical History Medical Problems: (1) Biliary obstruction Status: Acute Past Medical History: See above Past Surgical History: See above Family History Cancer Diabetes mellitus Heart disease Hypertension Social History Smoking Status: Never Smoker Alcohol Use: none Drug Use: none Marital Status: Housing Status: lives with family Occupation Status: employed Allergies Coded Allergies: No Known Allergies (Verified , 02/10/17) Current Medications Home Meds and Scripts Medications Dose Route/Sig Max Daily Dose Days Date Category Zofran Odt (Ondansetron HCl) 4 Mg Tab 4 Mg SL Q6H 01/14/17 Rx Flintstones Chewable (Pediatric Multiple Vitamin W/) 1 Chw Chw 1 Tab PO QAM 09/18/16 Reported Review of Systems Constitutional: + chills, No fever Respiratory: No cough, No shortness of breath Cardiac: No chest pain, No edema Abdomen: + see HPI Skin: No jaundice Physical Exam Date Time Temp Pulse Resp B/P Pulse Ox O2 Delivery O2 Flow Rate FiO2 02/10/17 09:31 36.7 68 16 113/61 98 02/10/17 09:26 68 16 95/58 98 02/10/17 08:28 52 16 114/64 98 Room Air 02/10/17 08:00 98 Room Air 02/10/17 06:47 60 16 113/63 97 Room Air 02/10/17 05:50 54 02/10/17 05:12 36.6 77 18 120/80 96 Room Air General Appearance: WD/WN, no apparent distress Eyes: normal inspection, PERRL, EOMI Neck: supple, no JVD, trachea midline Respiratory/Chest: normal breath sounds, no respiratory distress, no accessory muscle use Cardiovascular: regular rate, rhythm, no gallop, no murmur Abdomen: normal bowel sounds, soft, + tenderness (mild TTP over epigastric and RUQ area ) Extremities: normal inspection, no pedal edema, no calf tenderness Neurologic/Psych: alert, normal mood/affect, oriented x 3 Skin: normal color, no jaundice, no rash Laboratory Results Last 24 Hours Test 02/10/17 05:35 02/10/17 05:45 White Blood Count 10.11 K/uL Red Blood Count 5.50 M/uL Hemoglobin 15.9 g/dL Hematocrit 45.6 % Mean Corpuscular Volume 82.9 fL Mean Corpuscular Hemoglobin 28.9 pg Mean Corpuscular Hemoglobin Concent 34.9 g/dl Platelet Count 166 K/uL Mean Platelet Volume 11.0 fL Neutrophils (%) (Auto) 53.1 % Lymphocytes (%) (Auto) 35.2 % Monocytes (%) (Auto) 7.7 % Eosinophils (%) (Auto) 3.3 % Basophils (%) (Auto) 0.4 % Neutrophils # (Auto) 5.37 K/uL Lymphocytes # (Auto) 3.56 K/uL Monocytes # (Auto) 0.78 K/uL Eosinophils # (Auto) 0.33 K/uL Basophils # (Auto) 0.04 K/uL RDW Standard Deviation 40.3 fL RDW Coefficient of Variation 13.4 % Immature Granulocyte % (Auto) 0.3 % Immature Granulocyte # (Auto) 0.03 K/uL Prothrombin Time 10.9 SECONDS Prothromb Time International Ratio 1.0 Activated Partial Thromboplast Time 26.3 SECONDS Partial Thromboplastin Ratio 1.0 Sodium Level 142 mmol/L Potassium Level 3.5 mmol/L Chloride Level 105 mmol/L Carbon Dioxide Level 31 mmol/L Anion Gap 6.0 mmol/L Blood Urea Nitrogen 15 mg/dl Creatinine 0.85 mg/dl Estimated GFR () 106.6 Estimated GFR (Non- 91.9 BUN/Creatinine Ratio 17.8 Random Glucose 107 mg/dl Calcium Level 8.5 mg/dl Total Bilirubin 0.3 mg/dl Direct Bilirubin < 0.1 mg/dl Aspartate Amino Transf (AST/SGOT) 32 U/L Alanine Aminotransferase (ALT/SGPT) 25 U/L Alkaline Phosphatase 117 U/L Total Protein 7.4 gm/dl Albumin 3.9 gm/dl Lipase 154 U/L Human Chorionic Gonadotropin, Qual NEG Urine Color DK YELLOW Urine Appearance CLOUDY Urine pH 5.5 Urine Specific [place] 1.032 Urine Protein NEG Urine Glucose (UA) NEG Urine Ketones NEG Urine Occult Blood NEG Urine Nitrite NEG Urine Bilirubin NEG Urine Urobilinogen NEG Urine Leukocyte Esterase SMALL Urine WBC (Auto) >30 /hpf Urine RBC (Auto) 0-4 /hpf Urine Hyaline Casts (Auto) 1-5 /lpf Urine Epithelial Cells (Auto) >30 /lpf Urine Bacteria (Auto) 2+ Urine Pathogenic Casts /lpf Urine Mucus PRESENT Urine Yeast (Auto) BUDDING Impression Patient is a 31 year old female w acute onset of epigastric radiating to RUQ abd pain waking her up around 4AM today, + nausea, vomiting. Labs unremarkable, including normal LFTs, lipase. Gallbladder u/s showed gallstones/sludge, adenomyomatosis, CBD 4.7mm w 4mm distal duct stone. Plan - Stat MRCP -> if positive for choledocholithiasis, will plan for ERCP this afternoon in OR - Keep NPO - Surgery eval for possible cholecystectomy. Addendum: Reviewed u/s and MRCP images together w Dr. Mcduffie, 2 radiologist - biliary duct stone present. Will plan for ERCP this afternoon by Dr. Jackson.
--- NOTE | 2017-02-10 10:33 | Medical Consult ---
Consultation Date of Consultation: Feb 10, 2017. Attending Physician: Summer Perdomo MD History of Present Illness pt adm w/N/V, Rt abd pain- recent episodes- u/s ++gs and sludge, also possible 4mm CBD stone Was to come into our office this past week- couldn't make it- to ER today LFT's, lipase, wbc all nl h/o sigmoid resection 2013 , Dr Villalba, doing well from that Past Medical/Surgical History Medical Problems: (1) Biliary obstruction Status: Acute Family History Cancer Diabetes mellitus Heart disease Hypertension Social History Smoking Status: Never Smoker Drug Use: none Marital Status: Housing Status: lives with family Occupation Status: employed Allergies Coded Allergies: No Known Allergies (Verified , 02/10/17) Current Inpatient Medications Current Inpatient Medications Medications (Trade) Dose Ordered Sig/Roseanna Route Start Time Stop Time Status Last Admin Dose Admin Enoxaparin Sodium (Lovenox Inj) 40 mg Q24H SQ 02/10/17 21:00 03/12/17 20:59 Acetaminophen (Tylenol Tab) 650 mg Q4H PRN PO 02/10/17 08:30 03/12/17 08:29 Al Hydrox/Mg Hydrox/Simethicone (Maalox Max Susp) 15 ml Q4H PRN PO 02/10/17 08:30 03/12/17 08:29 Magnesium Hydroxide (Milk Of Magnesia Susp) 30 ml Q6H PRN PO 02/10/17 08:30 03/12/17 08:29 Ondansetron HCl (Zofran Inj) 4 mg Q6H PRN IV 02/10/17 08:30 03/12/17 08:29 Morphine Sulfate 4 mg 4 mg Q3HWA PRN IV 02/10/17 08:30 02/24/17 08:29 Sodium Chloride (Nss 1000ml) 1,000 ml @ 125 mls/hr Q8H IV 02/10/17 10:00 03/12/17 08:29 02/10/17 10:07 125 MLS/HR Albuterol (Ventolin Hfa Inhaler) 2 puffs Q4 PRN INH 02/10/17 08:30 03/12/17 08:29 Review of Systems Constitutional: No chills, No fever Eyes: No eye pain Respiratory: No cough, No sputum Cardiovascular: No chest pain Abdomen: + nausea, + pain, + vomiting Musculoskeletal: No joint pain Genitourinary - Female: No dysuria Neurologic: No weakness Psychiatric: No anxiety Integumentary: No rash Physical Exam Date Time Temp Pulse Resp B/P Pulse Ox O2 Delivery O2 Flow Rate FiO2 02/10/17 09:31 36.7 68 16 113/61 98 02/10/17 09:30 98 Room Air 02/10/17 09:26 68 16 95/58 98 02/10/17 08:28 52 16 114/64 98 Room Air 02/10/17 08:00 98 Room Air 02/10/17 06:47 60 16 113/63 97 Room Air 02/10/17 05:50 54 02/10/17 05:12 36.6 77 18 120/80 96 Room Air awake, alert General Appearance: no apparent distress Head: normocephalic, atraumatic Eyes: sclerae normal Neck: supple Respiratory/Chest: no respiratory distress Abdomen/GI: non tender, soft Extremities/Musculoskelatal: no pedal edema Laboratory Results Last 24 Hours Test 02/10/17 05:35 02/10/17 05:45 White Blood Count 10.11 K/uL Red Blood Count 5.50 M/uL Hemoglobin 15.9 g/dL Hematocrit 45.6 % Mean Corpuscular Volume 82.9 fL Mean Corpuscular Hemoglobin 28.9 pg Mean Corpuscular Hemoglobin Concent 34.9 g/dl Platelet Count 166 K/uL Mean Platelet Volume 11.0 fL Neutrophils (%) (Auto) 53.1 % Lymphocytes (%) (Auto) 35.2 % Monocytes (%) (Auto) 7.7 % Eosinophils (%) (Auto) 3.3 % Basophils (%) (Auto) 0.4 % Neutrophils # (Auto) 5.37 K/uL Lymphocytes # (Auto) 3.56 K/uL Monocytes # (Auto) 0.78 K/uL Eosinophils # (Auto) 0.33 K/uL Basophils # (Auto) 0.04 K/uL RDW Standard Deviation 40.3 fL RDW Coefficient of Variation 13.4 % Immature Granulocyte % (Auto) 0.3 % Immature Granulocyte # (Auto) 0.03 K/uL Prothrombin Time 10.9 SECONDS Prothromb Time International Ratio 1.0 Activated Partial Thromboplast Time 26.3 SECONDS Partial Thromboplastin Ratio 1.0 Sodium Level 142 mmol/L Potassium Level 3.5 mmol/L Chloride Level 105 mmol/L Carbon Dioxide Level 31 mmol/L Anion Gap 6.0 mmol/L Blood Urea Nitrogen 15 mg/dl Creatinine 0.85 mg/dl Estimated GFR () 106.6 Estimated GFR (Non- 91.9 BUN/Creatinine Ratio 17.8 Random Glucose 107 mg/dl Calcium Level 8.5 mg/dl Total Bilirubin 0.3 mg/dl Direct Bilirubin < 0.1 mg/dl Aspartate Amino Transf (AST/SGOT) 32 U/L Alanine Aminotransferase (ALT/SGPT) 25 U/L Alkaline Phosphatase 117 U/L Total Protein 7.4 gm/dl Albumin 3.9 gm/dl Lipase 154 U/L Human Chorionic Gonadotropin, Qual NEG Urine Color DK YELLOW Urine Appearance CLOUDY Urine pH 5.5 Urine Specific [place] 1.032 Urine Protein NEG Urine Glucose (UA) NEG Urine Ketones NEG Urine Occult Blood NEG Urine Nitrite NEG Urine Bilirubin NEG Urine Urobilinogen NEG Urine Leukocyte Esterase SMALL Urine WBC (Auto) >30 /hpf Urine RBC (Auto) 0-4 /hpf Urine Hyaline Casts (Auto) 1-5 /lpf Urine Epithelial Cells (Auto) >30 /lpf Urine Bacteria (Auto) 2+ Urine Pathogenic Casts /lpf Urine Mucus PRESENT Urine Yeast (Auto) BUDDING Assessment & Plan 02/10/17- adm with abd pain, N/V- likely biliary colic w/ gb sludge/ stones. Possible CBD stone labs essentially normal- for MRCP. Will need lap marshall at some point this adm.
[2017-02-10 10:57] LABS: URINE APPEARANCE CLEAR (CLEAR); URINE BILIRUBIN NEG (NEG); URINE COLOR YELLOW; URINE NITRITE NEG (NEG); UROBILINOGEN NEG (NEG)
[2017-02-10 11:03] LABS: MANUAL MICROSCOPIC REQUIRED? NO; REVIEW REQ? NO
--- NOTE | 2017-02-10 12:44 | DIAGNOSTIC IMAGING REPORT ---
MRCP CLINICAL HISTORY: r/o choledocholithiasis pain TECHNIQUE: Multiaxial MRI acquisition COMPARISON STUDY: Right upper quadrant ultrasound same date FINDINGS: Liver is uniform in overall appearance. There are no filling defects. No evidence of dilatation of the biliary ductal system. No evidence for gallbladder distention. Pancreas is uniform throughout. Spleen is unremarkable. Kidneys enhance uniformly. No evidence renal hydronephrosis. Bulk of the biliary ductal system is unremarkable. Extreme distal aspect of the common duct is not identified easily. IMPRESSION: 1. Gallbladder is negative for distention. 2. Bulk of the biliary and pancreatic ductal system is unremarkable. 3. Poor/nonvisualization of the distal common duct. This study does not confirm or exclude the possibility of distal choledocholithiasis. 4. Remainder the study is negative Electronically signed by: Piyush Christian M.D. 02/10/2017 12:42 PM Dictated Date/Time: 02/10/2017 12:33 PM
[2017-02-10] MEDS: ACETAMINOPHEN 325 MG TAB PO PRN ×2 (13:18→20:08)
[2017-02-10] MEDS ORDERED: INDOMETHACIN 50 MG SUPP PR SCH (13:30)
[2017-02-10] MEDS ORDERED: KETOROLAC TROMETHAMINE 30 MG/ML VIAL IV. PRN (15:45)
[2017-02-10] MEDS ORDERED: ATROPINE SULFATE 0.1 MG/ML 5ML SYR IV PRN (15:45)
[2017-02-10] MEDS ORDERED: HYDROmorphone INJ 2 MG/ML SYR/VIAL IV PRN (15:45)
[2017-02-10] MEDS ORDERED: GLYCOPYRROLATE INJ 0.2 MG/ML VIAL ONE (15:53)
[2017-02-10] MEDS ORDERED: DEXAMETHASONE SOD INJ 4 MG/ML VIAL ONE (15:53)
[2017-02-10] MEDS ORDERED: NEOSTIGMINE METHYLSULFATE 5 MG/5 ML SYR ONE (15:53)
[2017-02-10] MEDS ORDERED: MIDAZOLAM HCL 1 MG/ML 2ML VIAL ONE (15:53)
[2017-02-10] MEDS ORDERED: PROPOFOL IV EMULSION 10 MG/ML 20 ML VIAL IV ONE (15:53)
[2017-02-10] MEDS ORDERED: ROCURONIUM BROMIDE 10 MG/ML 5 ML VIAL ONE (15:53)
[2017-02-10] MEDS ORDERED: LIDOCAINE HCL 2% 2 ML VIAL (20MG/ML) ONE (15:53)
[2017-02-10] MEDS ORDERED: ONDANSETRON INJ 2 MG/ML 2 ML VIAL ONE (15:53)
[2017-02-10] MEDS ORDERED: FENTANYL CITRATE INJ 50 MCG/1 ML 2 ML VIAL ONE ×2 (15:54→17:08)
[2017-02-10] MEDS ORDERED: CEFOXITIN IV 1,000 MG in DEXTROSE 5% 50ML 50 ML IV SCH (16:00)
--- NOTE | 2017-02-10 16:00 | History & Physical Bridge Note ---
H&P Re-Evaluation Bridge Note: I have examined the patient, reviewed the History & Physical and in the interval since the performance of the History & Physical I have noted the following changes of clinical significance: No changes noted
[2017-02-10] MEDS ORDERED: BUPIVACAINE 0.5 % 5 MG/1 ML MPF 30ML VIAL ONE (16:10)
[2017-02-10] MEDS ORDERED: CONRAY 60% 50 ML VIAL ONE (16:10)
[2017-02-10] MEDS ORDERED: CEFAZOLIN SOD 1 GM VIAL ONE (16:49)
[2017-02-10] MEDS ORDERED: LARYING-O-JET KIT (LTA) EXT ONE ×2 (16:49)
--- NOTE | 2017-02-10 17:09 | GI REPORT ---
Procedure Date: 02/10/2017 4:28 PM Procedure: ERCP Indications: Abnormal MRCP, Bile duct stone on Ultrasound, For therapy of bile duct stone(s), Preop exam: Laparoscopic cholecystectomy Medicines: General Anesthesia, Indomethicin 100 mg rectal Complications: No immediate complications. Estimated blood loss: None Estimated Blood Loss: Estimated blood loss: none. Procedure: Pre-Anesthesia Assessment: - Prior to the procedure, a History and Physical was performed, and patient medications, allergies and sensitivities were reviewed. The patient's tolerance of previous anesthesia was reviewed. - ASA Grade Assessment: II - A patient with mild systemic disease. After obtaining informed consent, the scope was passed under direct vision. Throughout the procedure, the patient's blood pressure, pulse, and oxygen saturations were monitored continuously. The Scope was introduced through the mouth, and advanced to the duodenum and used to inject contrast into the bile duct and ventral pancreatic duct. The ERCP was accomplished with ease. The patient tolerated the procedure well. Findings: The car worker film was normal. The esophagus was successfully intubated under direct vision. The scope was advanced to a normal major papilla in the descending duodenum without detailed examination of the pharynx, larynx and associated structures, and upper GI tract. The upper GI tract was grossly normal. Although the Harry Cook Omni FS 35 sphinterome fully engaged the papilla, the wire could not be advanced with gentle manipulation. A small amount of contrast was injected that filled the ventral pancreatic duct in the head. This was normal. In a long position, a Harry Cook Acrobat 0.035 inch guidewire was passed into the biliary tree via a Harry medineering Omni FS 35 sphincterotome. The sphincterotome was passed over the guidewire and the bile duct was then deeply cannulated. Contrast was injected. I personally interpreted the bile duct images. There was brisk flow of contrast through the ducts. Image quality was excellent. Contrast extended to the entire biliary tree. Contrast extended to the proximal pancreatic duct. The ventral pancreatic duct in the head of the pancreas was normal. Choledocholithiasis was found in a nondilated duct. A 5 mm biliary sphincterotomy was made with a monofilament traction (standard) sphincterotome using ERBE electrocautery. There was no post-sphincterotomy bleeding. To discover objects, the biliary tree was swept with an 8 mm balloon starting at the bifurcation. One stone was removed. No stones remained. The total fluoroscopy exposure time was 1 minute and 28 seconds. Impression: - A sphincterotomy was performed. - The biliary tree was swept. - Choledocholithiasis was found. Complete removal was accomplished by biliary sphincterotomy and balloon extraction. Recommendation: - Laparoscopic cholecystectomy planned to immediately follow ERCP Travon Jackson M.D. Travon Jackson MD 02/10/2017 5:08:47 PM This report has been signed electronically. Note Initiated On: 02/10/2017 4:28 PM I attest to the content of the Intraoperative Record and orders documented therein, exceptions below
--- NOTE | 2017-02-10 17:17 | DIAGNOSTIC IMAGING REPORT ---
INTRAOPERATIVE RADIOGRAPHS CLINICAL HISTORY: ERCP procedure with duct expiration. Fluoroscopy time: 89 seconds. FINDINGS: 3 spot fluoroscopic views of the right upper quadrant from an ERCP procedure are correlated with MRCP dated 02/10/2017. There is no convincing evidence of choledocholithiasis on the provided images. The common bile duct appears normal in caliber. IMPRESSION: Intraoperative ERCP images as above. See operative report for detailed findings. Electronically signed by: Ori Key M.D. 02/10/2017 5:15 PM Dictated Date/Time: 02/10/2017 5:14 PM
--- NOTE | 2017-02-10 17:18 | [facility] Operative Report ---
Operative Report Operative Date Feb 10, 2017. Pre-Operative Diagnosis Choledocholithiasis Post-Operative Diagnosis Same Procedure(s) Performed ERCP with sphincterotomy and stone extraction Surgeon Dr. Travon Jackson Cone Machine Operator Surgeon(s) None Estimated Blood Loss 0 Findings Choledocholithiasis. See Provation report. Fluids See anesthesia report Specimens None Drains None Anesthesia General endotracheal Complication(s) None Disposition Lap Matilda to follow Indications Choledocholithiasis by US and MRCP Description of Procedure See choledocholithiasis I attest to the content of the Intraoperative Record and any orders documented therein. Any exceptions are noted below.
--- NOTE | 2017-02-10 18:04 | [facility] Post Operative Brief Note ---
Immediate Operative Summary Operative Date Feb 10, 2017. Pre-Operative Diagnosis Choledocholithiasis Post-Operative Diagnosis same, mild acute cholecystitis Procedure(s) Performed #1Endoscopic retrograde cholangiopancreatography, sphincterotomy, and stone extraction , #2 Laparoscopic cholecystectomy. Surgeon #2 Dr Staton Prior Authorization Nurse Surgeon(s) nurses Estimated Blood Loss #2 20ml Findings mild edema of gb Fluids (cc crystalloids) See anesthesia report Specimens a. gallbladder Anesthesia gen Disposition Recovery Room / PACU
[2017-02-10] MEDS ORDERED: HYDROmorphone INJ 0.5 MG/0.5 ML SYR IV PRN (18:15)
[2017-02-10] MEDS ORDERED: PROMETHAZINE HCL INJ 25 MG in SODIUM CHLORIDE 0.9% 50ML 50 ML IV PRN (18:15)
[2017-02-10] MEDS ORDERED: HYDROCODONE/ACETAMOPHEN 5/325MG TAB PO PRN ×2 (18:15)
[2017-02-10] MEDS ORDERED: HYDROmorphone INJ 1 MG/ML SYR IV PRN (18:15)
--- NOTE | 2017-02-10 18:26 | Medical Student: [facility] ---
Immediate Operative Summary Operative Date Feb 10, 2017. Pre-Operative Diagnosis Choledocolithiasis Post-Operative Diagnosis Same with cholecystitis Procedure(s) Performed 1. ERCP with sphincterotomy 2. Laproscopic cholecystectomy Surgeon #2 Dr. Staton Chucking Machine Set Up Operator Tool Surgeon(s) None Estimated Blood Loss #2 20 cc Findings Gallbladder edema Fluids (cc crystalloids) #1 & #2 -- 1700 cc Specimens Gallbladder Drains none Anesthesia General Disposition Recovery Room / PACU
--- NOTE | 2017-02-10 18:52 | Anesthesiology Progress Note ---
Anesthesia Post Op Note Date & Time Feb 10, 2017 at 18:52 Vital Signs Pain Intensity: 0 Vital Signs Past 12 Hours Date Time Temp Pulse Resp B/P Pulse Ox O2 Delivery O2 Flow Rate FiO2 02/10/17 18:44 36.6 76 21 136/84 99 Nasal Cannula 2 02/10/17 18:37 73 19 97 02/10/17 18:37 75 19 02/10/17 18:35 132/82 02/10/17 18:32 79 17 96 02/10/17 18:32 80 17 02/10/17 18:30 139/76 02/10/17 18:27 77 15 02/10/17 18:27 78 15 100 02/10/17 18:26 86 16 99 02/10/17 18:26 85 16 02/10/17 18:25 134/83 02/10/17 18:21 87 17 02/10/17 18:21 87 17 100 02/10/17 18:20 124/75 02/10/17 18:16 89 17 02/10/17 18:16 89 17 100 02/10/17 18:15 119/81 02/10/17 18:12 137/86 02/10/17 18:11 98 19 100 02/10/17 18:11 36.1 87 16 137/86 100 Mask 10 02/10/17 18:11 98 19 02/10/17 15:14 36.8 58 18 125/64 98 Room Air 02/10/17 14:45 36.6 58 17 110/73 95 Room Air 02/10/17 09:31 36.7 68 16 113/61 98 02/10/17 09:30 98 Room Air 02/10/17 09:26 68 16 95/58 98 02/10/17 08:28 52 16 114/64 98 Room Air 02/10/17 08:00 98 Room Air Notes Mental Status: alert / awake / arousable, participated in evaluation Pt Amnestic to Procedure: Yes Nausea / Vomiting: adequately controlled Pain: adequately controlled Airway Patency, RR, SpO2: stable & adequate BP & HR: stable & adequate Hydration State: stable & adequate Anesthetic Complications: no major complications apparent
[2017-02-10] MEDS ORDERED: PROMETHAZINE HCL INJ 12.5 MG in SODIUM CHLORIDE 0.9% 50ML 50 ML IV PRN (19:15)
--- NOTE | 2017-02-10 19:28 | OPERATIVE REPORT ---
DATE OF OPERATION: 02/10/2017 NAME OF OPERATION: Laparoscopic cholecystectomy. PREOPERATIVE DIAGNOSES: Cholelithiasis and choledocholithiasis. POSTOPERATIVE DIAGNOSIS: Same. STAFF SURGEON: Dr. Staton. ANESTHESIA: General. DESCRIPTION OF PROCEDURE: The patient was in the operating room. She had undergone ERCP by Dr. Jackson. She was placed supine and then her abdomen was prepped and draped in usual fashion. She had had previous midline incision from colon surgery. Incision was made just below the umbilicus, carrying dissection down to the fascia and entering the abdominal cavity. I was able to place a 5 mm port and then produce a pneumoperitoneum. The 11 mm port was then placed at this level and then the camera passed. We could see the omentum, but I was able to easily traverse to the area of the liver and observe the gallbladder. I placed three 5 mm ports, 1 cephalad and 2 laterally, all under visualization. As a note during the procedure, she did have some skin and subcutaneous oozing. There was no evidence that she had received any Lovenox or significant aspirin. The gallbladder was aspirated of bile. It was retracted. Dissection carried out at the dior hepatis identifying the cystic duct and cystic artery. These were clipped and transected. The gallbladder was then dissected away from the liver bed. There was edema in the gallbladder consistent with acute cholecystitis. Gallbladder was placed into an Endobag and then after appropriate irrigation and hemostasis, the Endobag was removed through the umbilical site. At this point, all ports were removed. The fascia at the umbilicus closed using interrupted 0 Vicryl suture. Subcutaneous tissue reapproximated using 2-0 plain catgut suture and then the skin reapproximated in all incisions using 5-0 Prolene suture. The patient was transferred to recovery room in stable condition. I attest to the content of the Intraoperative Record and any orders documented therein. Any exceptio ns are noted below.
[2017-02-10] MEDS ORDERED: LACTATED RINGER'S 1000ML 1,000 ML IV SCH (20:15)
[2017-02-10] MEDS ORDERED: ENOXAPARIN 40 MG/0.4 ML SYR SQ SCH (21:00)
[2017-02-10] MEDS: CEFOXITIN IV 1,000 MG in DEXTROSE 5% 50ML 50 ML IV SCH (21:16)
[2017-02-11 03:23] VITALS: BP 116/68; PULSE 67; TEMP 36.7; O2SAT 96
[2017-02-11] MEDS: CEFOXITIN IV 1,000 MG in DEXTROSE 5% 50ML 50 ML IV SCH (04:05)
--- NOTE | 2017-02-11 05:33 | Discharge Instructions ---
Discharge Instructions Date of Service Feb 11, 2017. Admission Reason for Admission: Cholelithiasis Discharge Discharge Diagnosis / Problem: choledocholithiasis, cholelithiasis Discharge Goals Goal(s): Decrease discomfort, Improve function, Improve disease control Activity Recommendations Activity Limitations: as noted below Lifting Limitations: no more than 25 pounds Exercise/Sports Limitations: until after follow-up appointment May Resume Sexual Activity: when tolerated Shower/Bathe: tomorrow Driving or Machine Use: resume 3 days after discharge SPECIAL CARE INSTRUCTIONS: * Cover incisions and change daily for comfort/drainage. * May use ibuprofen for pain as tolerated. * Expect some swelling and bruising. Call your doctor if: * Temperature above 101 degrees * Pain not relieved by pain medicine ordered * There is increased drainage or redness from any incision * You have any unanswered questions or concerns [phone]. FOLLOW UP VISIT: If not already scheduled, please call the office for a follow-up visit. for next week- some sutures removed OFFICE PHONE NUMBER: Dr. Staton Office . Current Hospital Diet Patient's current hospital diet: Regular Diet Discharge Diet Recommended Diet: Regular Diet Procedures Procedures Performed: #1Endoscopic retrograde cholangiopancreatography, sphincterotomy, and stone extraction , #2 Laparoscopic cholecystectomy. Pending Studies Studies pending at discharge: no Laboratory Results Lipid Panel Test 12/09/16 11:05 Range/Units Triglycerides Level 56 0-150 mg/dl Cholesterol Level 156 0-200 mg/dl HDL Cholesterol 65 mg/dl Cholesterol/HDL Ratio 2.4 LDL Cholesterol, Calculated 80 mg/dl Medical Emergencies . Who to Call and When: Medical Emergencies: If at any time you feel your situation is an emergency, please call 911 immediately. . Non-Emergent Contact Non-Emergency issues call your: Primary Care Provider, Surgeon . "Provider Documentation" section prepared by Santiago Staton. VTE Core Measure Inpt VTE Proph given/why not?: Enoxaparin (Lovenox)SQ, SCD's
[2017-02-11 05:46] LABS: HEMATOCRIT 39.2 % (37-47); MEAN CELL VOLUME 80.8 fL (80-100); MEAN CORPUSCULAR HEMOGLOBIN 27.8 pg (25-34); MEAN CORPUSCULAR HGB CONC 34.4 g/dl (32-36); MEAN PLATELET VOLUME 11.1 fL (7.4-10.4); PLATELET COUNT 174 K/uL (130-400); RED BLOOD COUNT 4.85 M/uL (4.2-5.4); WHITE BLOOD COUNT 9.44 K/uL (4.8-10.8)
--- NOTE | 2017-02-11 05:46 | Surgery Progress Note ---
Surgery Progress Note Date of Service Feb 11, 2017. Subjective + feeling well, No nausea, No vomiting mild incisional pain, throat hurts- ETTube Objective Vital Signs: Date Time Temp Pulse Resp B/P Pulse Ox O2 Delivery O2 Flow Rate FiO2 02/11/17 03:23 36.7 67 16 116/68 96 Room Air 02/11/17 00:00 Room Air 02/10/17 22:30 36.6 50 18 123/77 96 Room Air 02/10/17 21:05 36.6 74 18 133/84 95 Room Air 02/10/17 20:05 36.3 74 18 136/87 95 Room Air 02/10/17 19:21 100 Nasal Cannula 2.0 02/10/17 18:58 68 16 99 02/10/17 18:58 72 16 02/10/17 18:55 137/86 02/10/17 18:53 63 14 02/10/17 18:53 63 14 99 02/10/17 18:50 139/84 02/10/17 18:48 63 14 98 02/10/17 18:48 65 14 02/10/17 18:45 136/84 02/10/17 18:44 36.6 76 21 136/84 99 Nasal Cannula 2 02/10/17 18:43 67 17 99 02/10/17 18:43 69 17 02/10/17 18:40 130/84 02/10/17 18:38 74 15 99 02/10/17 18:38 73 15 02/10/17 18:37 73 19 97 02/10/17 18:37 75 19 02/10/17 18:35 132/82 02/10/17 18:32 79 17 96 02/10/17 18:32 80 17 02/10/17 18:30 139/76 02/10/17 18:27 77 15 02/10/17 18:27 78 15 100 02/10/17 18:26 86 16 99 02/10/17 18:26 85 16 02/10/17 18:25 134/83 02/10/17 18:21 87 17 02/10/17 18:21 87 17 100 02/10/17 18:20 124/75 02/10/17 18:16 89 17 02/10/17 18:16 89 17 100 02/10/17 18:15 119/81 02/10/17 18:12 137/86 02/10/17 18:11 98 19 100 02/10/17 18:11 36.1 87 16 137/86 100 Mask 10 02/10/17 18:11 98 19 02/10/17 15:14 36.8 58 18 125/64 98 Room Air 02/10/17 14:45 36.6 58 17 110/73 95 Room Air 02/10/17 09:31 36.7 68 16 113/61 98 02/10/17 09:30 98 Room Air 02/10/17 09:26 68 16 95/58 98 02/10/17 08:28 52 16 114/64 98 Room Air 02/10/17 08:00 98 Room Air 02/10/17 06:47 60 16 113/63 97 Room Air 02/10/17 05:50 54 General Appearance: WD/WN, no apparent distress Neck: supple Respiratory/Chest: no respiratory distress Abdomen: soft Incision(s): intact Laboratory Results: Results Past 24 Hours Test 02/10/17 05:45 02/10/17 10:30 02/11/17 05:05 Range/Units Urine Color DK YELLOW YELLOW Urine Appearance CLOUDY CLEAR CLEAR Urine pH 5.5 8.0 4.5-7.5 Urine Specific [place] 1.032 1.020 1.000-1.030 Urine Protein NEG NEG NEG Urine Glucose (UA) NEG NEG NEG Urine Ketones NEG NEG NEG Urine Occult Blood NEG NEG NEG Urine Nitrite NEG NEG NEG Urine Bilirubin NEG NEG NEG Urine Urobilinogen NEG NEG NEG Urine Leukocyte Esterase SMALL NEG NEG Urine WBC (Auto) >30 0-5 /hpf Urine RBC (Auto) 0-4 0-4 /hpf Urine Hyaline Casts (Auto) 1-5 0-5 /lpf Urine Epithelial Cells (Auto) >30 0-5 /lpf Urine Bacteria (Auto) 2+ NEG Urine Pathogenic Casts 0 /lpf Urine Mucus PRESENT NONE PRSENT Urine Yeast (Auto) BUDDING NONE PRSENT Microbiology Results 02/10/17 Urine Culture, Received Pending Assessment & Plan 02/11/17- s/p ERCP then lap marshall- acute edema. check am labs then pt can be d/c home- she insists. Will follow in clinic soon she does not want pain med- instr in computer
[2017-02-11 06:10] LABS: BUN/CREATININE RATIO 9.3 (10-20); CALCIUM 8.6 mg/dl (8.5-10.1); CREATININE 0.9 mg/dl (0.60-1.20); POTASSIUM 4.3 mmol/L (3.5-5.1)
[2017-02-11 06:11] LABS: ALB/GLOB RATIO 1.1 (0.9-2)
[2017-02-11 06:44] VITALS: BP 116/68; PULSE 67; TEMP 36.7; O2SAT 96
[2017-02-11 06:58] VITALS: BP 102/61; PULSE 63; TEMP 36.8; O2SAT 98
[2017-02-11] MEDS ORDERED: ENOXAPARIN 40 MG/0.4 ML SYR SQ SCH (09:00)
--- NOTE | 2017-02-11 12:02 | Discharge Summary ---
Discharge Summary Date of Service Feb 11, 2017. Discharge Summary Admission Date: Feb 10, 2017 at 08:32 Discharge Date: Feb 11, 2017 Discharge Disposition: Home Principal Diagnosis: Cholelithiasis/Biliary Colic Immunizations: Have You Had Influenza Vaccine: Yes Influenza Vaccine Date: Oct 15, 2013 History of Tetanus Vaccine?: Yes History of Pneumococcal: No History of Hepatitis B Vaccine: Yes Consultations: Surgery GI Medication Reconciliation Continued Medications: Ondasetron Odt (Zofran Odt) 4 Mg Tab 4 MG SL Q6H for Nausea, #14 TAB Pediatric Multiple Vitamin W/ (Flintstones Chewable) 1 Chw Chw 1 TAB PO QAM, TAB Hospital Course Admission HPI Patient is a 31 y.o.F PMHX of recent child in , Metastatic Colon Ca s/p Hemicolectomy in 2013 adn Asthma who presents with abdominal pain. Patient presented to the ED 2 weeks ago with with similar symptoms and was found to have gallstones. Patient at danish fries, hamburger and a pizza yesterday and awoke this am with mid epigastric abdominal pain that radiated to her right side. Patient started vomiting at home and preceded to the ED in which she continued to vomit. She states symptoms did not subside until receiving pain medication and antiemetics in the ED. She does have a hx of metastatic colon ca however denies any melan or BRBPR. She states she did have bowel movement this am however reports loose stools starting 1-2 months ago. Patient was scheduled to see general surgery on 02.08.17 however missed the appointment Hospital Course Patient was admitted to the hospitalist service. GI and surgery was consulted as admission ultrasound showed a biliary stone. Patient had endoscopic retrograde cholangiopancreatography, sphincterotomy, and stone extraction with Laparoscopic cholecystectomy on 02.10 by GI and surgery respectively. Patient was discharged by the surgery team on 02.11.17 before further evaluation could be done by hospitalist service. Total Time Spent: Greater than 30 minutes This includes examination of the patient, discharge planning, medication reconciliation, and communication with other providers. Discharge Instructions Please refer to the electronic Patient Visit Report (Discharge Instructions) for additional information.
== END 2017-02-11 07:35 | disposition home or self-care (01) | DRG 419 ==
LOC: ENRESERVDT → ENRESERVTM → C.EDB 05:10 → C.MSW 08:32
PROVIDERS: ADMIT Internal Medicine; ATTEND Internal Medicine
PROC: 0FC98ZZ Extirpation of Matter from Common Bile Duct, Via Natural or Artificial Opening Endoscopic (ICD-10-PCS; principal; 2017-02-10 15:00)
PROC: 0F798ZZ Dilation of Common Bile Duct, Via Natural or Artificial Opening Endoscopic (ICD-10-PCS; principal; 2017-02-10 15:00)
PROC: 0FT44ZZ Resection of Gallbladder, Percutaneous Endoscopic Approach (ICD-10-PCS; 2017-02-10 15:00)
DX: K80.66 Calculus of gallbladder and bile duct with acute and chronic cholecystitis without obstruction (principal); J45.909 Unspecified asthma, uncomplicated; Z83.3 Family history of diabetes mellitus; Z82.49 Family history of ischemic heart disease and other diseases of the circulatory system; Z85.038 Personal history of other malignant neoplasm of large intestine

== ENCOUNTER → 2017-04-18 | Outpatient (CLI) | payer OTHER ==
[~2017-04-18] MED LIST changes: +ALBU18002 INH; +CEPH500C PO; +LEVO50TA6 PO; +MOME100A INH; +OFLO0.3D4 OTL; +PEDICHW50 PO
[2017-04-18 16:23] LABS: URINE APPEARANCE CLEAR (CLEAR); URINE BILIRUBIN NEG (NEG); URINE COLOR YELLOW; URINE EPITHELIAL CELL AUTO >30 /lpf (0-5); URINE NITRITE NEG (NEG); URINE SPECIFIC GRAVITY 1.017 (1.000-1.030); UROBILINOGEN NEG (NEG); ZZUR CULT IF INDIC CLEAN CATCH NO
[2017-04-18 16:24] LABS: MANUAL MICROSCOPIC REQUIRED? NO; REVIEW REQ? NO
== END | disposition home or self-care (01) ==
LOC: C.LABSPEC 16:06
PROVIDERS: ATTEND Obstetrics & Gynecology
DX: R30.0 Dysuria (principal)

== ENCOUNTER → 2017-05-15 | Outpatient (CLI) | payer OTHER | END | disposition home or self-care (01) | LOC: C.LAB 10:43 | PROVIDERS: ATTEND Obstetrics & Gynecology | DX: Z34.90 Encounter for supervision of normal pregnancy, unspecified, unspecified trimester (principal) ==

== ENCOUNTER → 2017-05-17 | Outpatient (CLI) | payer OTHER | END | disposition home or self-care (01) | LOC: C.LAB 12:06 | PROVIDERS: ATTEND Obstetrics & Gynecology | DX: Z33.1 Pregnant state, incidental (principal) ==

== ENCOUNTER → 2017-05-24 | Outpatient (CLI) | payer OTHER ==
[2017-05-24 14:19] LABS: THYROID STIMULATING HORMONE 2.94 uIu/ml (0.300-4.500)
== END | disposition home or self-care (01) ==
LOC: C.LAB 12:13
PROVIDERS: ATTEND Obstetrics & Gynecology
DX: O26.899 Other specified pregnancy related conditions, unspecified trimester (principal); O99.280 Endocrine, nutritional and metabolic diseases complicating pregnancy, unspecified trimester; E05.90 Thyrotoxicosis, unspecified without thyrotoxic crisis or storm; M79.1 Myalgia; Z3A.00 Weeks of gestation of pregnancy not specified

== ENCOUNTER → 2017-06-13 | Outpatient (CLI) | payer OTHER | END | disposition home or self-care (01) | LOC: C.PAPS 09:24 | PROVIDERS: ATTEND Obstetrics & Gynecology | DX: Z34.80 Encounter for supervision of other normal pregnancy, unspecified trimester (principal) ==

== ENCOUNTER → 2017-06-13 | Outpatient (CLI) | payer OTHER ==
[2017-06-13 17:20] LABS: BASO % 0.2 %; BASO ABS # 0.02 K/uL (0-0.2); COMPLETE YES; EOS % 0.9 %; HEMATOCRIT 40.2 % (37-47); IG% 0.2 %; LYMPH % 18.4 %; LYMPH ABS # 1.82 K/uL (1.2-3.4); MEAN CELL VOLUME 84.3 fL (80-100); MEAN CORPUSCULAR HEMOGLOBIN 28.5 pg (25-34); MEAN CORPUSCULAR HGB CONC 33.8 g/dl (32-36); MEAN PLATELET VOLUME 10.7 fL (7.4-10.4); MONO % 5.3 %; PLATELET COUNT 201 K/uL (130-400); RED BLOOD COUNT 4.77 M/uL (4.2-5.4); WHITE BLOOD COUNT 9.88 K/uL (4.8-10.8)
[2017-06-13 18:36] LABS: URINE APPEARANCE TURBID (CLEAR); URINE BILIRUBIN NEG (NEG); URINE COLOR DK YELLOW; URINE EPITHELIAL CELL AUTO >30 /lpf (0-5); URINE NITRITE NEG (NEG); URINE SPECIFIC GRAVITY 1.032 (1.000-1.030); UROBILINOGEN NEG (NEG)
[2017-06-13 18:41] LABS: MANUAL MICROSCOPIC REQUIRED? NO; REVIEW REQ? YES
[2017-06-16 01:22] LABS: CHLAMYDIA TRACH RNA*** NOT DETECTED (NOT DETECTED); GC (NEIS GONORRHOEAE)RNA** NOT DETECTED (NOT DETECTED)
== END | disposition home or self-care (01) ==
LOC: C.LAB1850 16:05
PROVIDERS: ATTEND Obstetrics & Gynecology
DX: Z34.81 Encounter for supervision of other normal pregnancy, first trimester (principal); Z85.038 Personal history of other malignant neoplasm of large intestine

== ENCOUNTER → 2017-06-22 | Outpatient (CLI) | payer OTHER | END | disposition home or self-care (01) | LOC: C.LAB1850 10:33 | PROVIDERS: ATTEND Internal Medicine Endocrinology, Diabetes & Metabolism | DX: Z86.39 Personal history of other endocrine, nutritional and metabolic disease (principal); O99.280 Endocrine, nutritional and metabolic diseases complicating pregnancy, unspecified trimester ==

== ENCOUNTER → 2017-07-24 | Outpatient (CLI) | payer OTHER ==
[~2017-07-24] MED LIST changes: -ONDA4TAB10 SL
[2017-07-24 17:40] LABS: URINE APPEARANCE CLOUDY (CLEAR); URINE BILIRUBIN NEG (NEG); URINE COLOR DK YELLOW; URINE EPITHELIAL CELL AUTO >30 /lpf (0-5); URINE NITRITE NEG (NEG); URINE PH 5.5 (4.5-7.5); URINE SPECIFIC GRAVITY 1.038 (1.000-1.030); UROBILINOGEN NEG (NEG)
[2017-07-24 17:46] LABS: MANUAL MICROSCOPIC REQUIRED? NO; REVIEW REQ? NO
== END | disposition home or self-care (01) ==
LOC: C.LAB1850 15:53
PROVIDERS: ATTEND Obstetrics & Gynecology
DX: O99.280 Endocrine, nutritional and metabolic diseases complicating pregnancy, unspecified trimester (principal); R35.0 Frequency of micturition; Z3A.00 Weeks of gestation of pregnancy not specified

== ENCOUNTER 2017-07-25 18:24 | Emergency (ER) | payer OTHER ==
[~2017-07-25] VITALS: Ht 160 cm; Wt 67.2 kg
[2017-07-25 18:31] VITALS: TEMP 36.8; Ht 160 cm; Wt 67.2 kg
[2017-07-25] MEDS ORDERED: LEVO50TA6 PO (19:15)
[2017-07-25] MEDS ORDERED: ALBU18002 INH (19:15)
[2017-07-25] MEDS ORDERED: MOME100A INH (19:15)
[2017-07-25] MEDS ORDERED: OFLO0.3D4 OTL (19:15)
--- NOTE | 2017-07-25 19:18 | EMERGENCY ROOM VISIT NOTE ---
ED Visit Note First contact with patient: 18:53 CHIEF COMPLAINT: Urinary frequency, urgency, abdominal pressure and cramping HISTORY OF PRESENT ILLNESS: This 32-year-old female patient presents to the emergency department, 14 weeks , complaining of one to 2 week history of pressure and tightness in her lower abdomen. The patient describes a cramping sensation on occasion. Patient states she has been experiencing urinary frequency and urgency, and is feeling a pressure in her urethra. The patient states she feels like she is playing when she is not. She states she is noticing some clear, watery drainage on her underwear, but states she does not think that it is urine. The patient states she has been calling her straightening machine feeder's office for the past 1-2 weeks, and finally gave a urine sample yesterday. She has not been seen by the straightening machine feeder. The urine sample yesterday apparently showed bacteria and the nurse from the obstetrics office suspects an infection. The patient states she was told they do not want to treat for a urinary tract infection until they obtain a culture. The patient denies any vaginal discharge, bleeding, fever, chills, nausea, vomiting, or other associated symptoms. She states "I just don't feel right". Patient also reports some intermittent constipation sensation. She states she is concerned that the baby is okay, and was like an ultrasound to rule out complications with the . REVIEW OF SYSTEMS: A 10 system review of systems was performed with positives and pertinent negatives listed in the history of present illness. All other systems were reviewed and are negative. ALLERGIES: Propranolol MEDICATIONS: Pediatric multivitamins, Fiber gummies PMH: Colon cancer SOCIAL HISTORY: Patient lives locally with family. She denies drug, alcohol, tobacco use. PHYSICAL EXAM: VITALS: Vitals are noted on the nurse's note and reviewed by myself. Vital signs stable. GENERAL: This is a 32-year-old female, in no acute distress, nondiaphoretic, well-developed well-nourished. SKIN: The skin was without rashes, erythema, edema, or bruising. There is no tenting of the skin. Capillary reflex less than 2 seconds. HEAD: Normocephalic atraumatic. NECK: Supple without nuchal rigidity. No lymphadenopathy. No thyromegaly. Cervical spine is nontender. No JVD. HEART: Regular rate and rhythm without murmurs gallops or rubs. LUNGS: Clear to auscultation bilaterally without wheezes, rales or rhonchi. No dullness to percussion. No retractions or accessory muscle use. ABDOMEN: Positive bowel sounds x 4. Normal tympanic percussion. Mild tenderness to palpation of the suprapubic region. Otherwise, soft, nontender, without masses or organomegaly. Samaniego sign negative. No guarding or rebound tenderness. MUSCULOSKELETAL: No muscle atrophy, erythema, or edema noted. Full range of motion without joint tenderness in all extremities. No tenderness to palpation. Normal gait. Strength 5/5 throughout. NEURO: Patient was alert and oriented to person place and time. Normal sensation to light and sharp touch. Deep tendon reflexes 2+ throughout. No focal neurological deficits. RADIOLOGY: U/S: LIMITED (US) CLINICAL HISTORY: 32 years-old Female presenting with abdominal pain/cramping, 14 weeks . TECHNIQUE: Real-time grayscale and M-mode Doppler ultrasound imaging of the pelvis was performed using a transabdominal probe. COMPARISON: None. FINDINGS: Uterus: Single live intrauterine . Femur length measures 1.3 cm corresponding to an estimated gestational age of 13 weeks 5 days. heart rate 150 beats per minute. Anteverted uterus. Normal amniotic fluid volume. Posterior placental implantation. No convincing evidence of a perigestational hemorrhage. Cervix long and closed.. Right adnexa: Not visualized. Left adnexa: Not visualized. Other: No free fluid. IMPRESSION: Single live intrauterine with an estimated gestational age of 13 weeks 5 days and estimated date of delivery 01/25/2018. Electronically signed by: Diomedes Fu M.D. 07/25/2017 8:13 PM Dictated Date/Time: 07/25/2017 8:11 PM EMERGENCY DEPARTMENT COURSE: The patient seen and evaluated as above. Her urinalysis and preliminary culture results were reviewed by myself. A repeat urinalysis was ordered and performed, and did show a turbid appearance, positive bacteria, and positive leukocyte esterase. The patient did request to have an ultrasound performed to verify that the baby is fine due to her abdominal pain. This was ordered and reviewed by myself and radiologist. I do suspect that the patient's symptoms are related to a urinary tract infection. Based on the preliminary culture results with pinpoint growth and the patient's symptoms and urinalysis, I do feel that treatment at this time is warranted. The patient was provided with a home pack for Keflex and encouraged to follow up with her PCP and straightening machine feeder. A prescription was sent to the pharmacy for the patient to fill later. The patient was discharged home in good condition. DIFFERENTIAL DIAGNOSIS: Urinary tract infection, nephrolithiasis, pyelonephritis , hydronephrosis, miscarriage, malignancy, and others DIAGNOSIS: Dysuria, likely urinary tract infection DISCHARGE INSTRUCTIONS & TREATMENT: You have been treated in the Emergency Department for a Urinary Tract Infection (UTI). U/S did show live intrauterine of approximately 13 weeks and 5 days gestation. There is no evidence of intrauterine hemorrhage. You have been prescribed Keflex to be taken twice daily. This is an antibiotic. All antibiotics have the potential to cause diarrhea. Stop this medication and contact a medical provider if you were to develop any significant adverse side effects including: wheezing, shortness of breath, passing out, vomiting, or a diffuse rash. Always take antibiotics as directed and COMPLETE the ENTIRE course regardless of the improvement of your symptoms. Drink plenty of water and stay well hydrated. As with any trip to the Emergency Department, you should follow-up with your Primary Care Provider from today's visit. You should also follow up with your straightening machine feeder. Return to the emergency department if your symptoms persist despite treatment plan outlined above or if the following symptoms occur: increased fevers, chills , low back pain, nausea/vomiting, or blood in your urine. Problem List Medical Problems: (1) Anemia Status: Chronic (2) Asthma Status: Chronic (3) Surgery for colon cancer Status: Resolved Current/Historical Medications Scheduled Cephalexin Monohydrate (Keflex), 500 MG PO BID Levothyroxine Sodium (Levothyroxine Sodium), 50 MCG PO DAILY Ofloxacin (Otic) (Floxin Otic), 5 DROPS OTL BID Pediatric Multiple Vitamin W/ (Flintstones Chewable), 1 TAB PO QAM Scheduled PRN Albuterol Sulfate (Proair Respiclick), 1-2 PUFFS INH Q6H PRN for SOB/Wheezing Mometasone Furoate-Formoterol (Dulera 100/5 Mcg), 1 PUFF INH BID PRN for Shortness of Breath Allergies Coded Allergies: Propranolol (Verified Allergy, Mild, itching, 02/10/17) Vital Signs Date Time Temp Pulse Resp B/P (MAP) Pulse Ox O2 Delivery O2 Flow Rate FiO2 07/25/17 18:31 36.8 77 20 117/73 98 Room Air Laboratory Results Test 07/25/17 19:10 Urine Color YELLOW Urine Appearance TURBID (CLEAR) Urine pH 8.5 (4.5-7.5) Urine Specific [place] 1.017 (1.000-1.030) Urine Protein NEG (NEG) Urine Glucose (UA) NEG (NEG) Urine Ketones NEG (NEG) Urine Occult Blood NEG (NEG) Urine Nitrite NEG (NEG) Urine Bilirubin NEG (NEG) Urine Urobilinogen NEG (NEG) Urine Leukocyte Esterase TRACE (NEG) Urine WBC (Auto) 1-5 /hpf (0-5) Urine RBC (Auto) 0-4 /hpf (0-4) Urine Hyaline Casts (Auto) 0 /lpf (0-5) Urine Epithelial Cells (Auto) >30 /lpf (0-5) Urine Bacteria (Auto) 1+ (NEG) Medications Administered Medications (Trade) Dose Ordered Sig/Roseanna Route Start Time Stop Time Status Last Admin Dose Admin Cephalexin Monohydrate (Keflex 500MG Home Pack) 1 homepack NOW ONCE PO 07/25/17 19:45 07/25/17 19:46 DC 07/25/17 19:45 1 HOMEPACK Departure Information Impression Primary Impression: Dysuria Dispostion Home / Self-Care Condition GOOD Prescriptions Cephalexin Monohydrate (Keflex) 500 Mg Cap 500 MG PO BID for 7 Days, #14 CAP Prov: Jessi Barriga PA-C 07/25/17 Referrals No Doctor, Assigned (PCP) Val White M.D. Shannon, Dennis, M.D. Patient Instructions ED UTI Cystitis Female, My [facility] Additional Instructions You have been treated in the Emergency Department for a Urinary Tract Infection (UTI). U/S did show live intrauterine of approximately 13 weeks and 5 days gestation. There is no evidence of intrauterine hemorrhage. You have been prescribed Keflex to be taken twice daily. This is an antibiotic. All antibiotics have the potential to cause diarrhea. Stop this medication and contact a medical provider if you were to develop any significant adverse side effects including: wheezing, shortness of breath, passing out, vomiting, or a diffuse rash. Always take antibiotics as directed and COMPLETE the ENTIRE course regardless of the improvement of your symptoms. Drink plenty of water and stay well hydrated. As with any trip to the Emergency Department, you should follow-up with your Primary Care Provider from today's visit. You should also follow up with your straightening machine feeder. Return to the emergency department if your symptoms persist despite treatment plan outlined above or if the following symptoms occur: increased fevers, chills , low back pain, nausea/vomiting, or blood in your urine.
[2017-07-25 19:24] LABS: URINE APPEARANCE TURBID (CLEAR); URINE BILIRUBIN NEG (NEG); URINE COLOR YELLOW; URINE EPITHELIAL CELL AUTO >30 /lpf (0-5); URINE NITRITE NEG (NEG); URINE PH 8.5 (4.5-7.5); URINE SPECIFIC GRAVITY 1.017 (1.000-1.030); UROBILINOGEN NEG (NEG); ZZUR CULT IF INDIC CLEAN CATCH YES
[2017-07-25 19:27] LABS: MANUAL MICROSCOPIC REQUIRED? NO; REVIEW REQ? NO
[2017-07-25] MEDS ORDERED: CEPH500C PO (19:45)
[2017-07-25] MEDS: CEPHALEXIN 500MG HOME PACK 1 EA BTL PO ONE (19:45)
--- NOTE | 2017-07-25 20:14 | DIAGNOSTIC IMAGING REPORT ---
LIMITED (US) CLINICAL HISTORY: 32 years-old Female presenting with abdominal pain/cramping, 14 weeks . TECHNIQUE: Real-time grayscale and M-mode Doppler ultrasound imaging of the pelvis was performed using a transabdominal probe. COMPARISON: None. FINDINGS: Uterus: Single live intrauterine . Femur length measures 1.3 cm corresponding to an estimated gestational age of 13 weeks 5 days. heart rate 150 beats per minute. Anteverted uterus. Normal amniotic fluid volume. Posterior placental implantation. No convincing evidence of a perigestational hemorrhage. Cervix long and closed.. Right adnexa: Not visualized. Left adnexa: Not visualized. Other: No free fluid. IMPRESSION: Single live intrauterine with an estimated gestational age of 13 weeks 5 days and estimated date of delivery 01/25/2018. Electronically signed by: Diomedes Fu M.D. 07/25/2017 8:13 PM Dictated Date/Time: 07/25/2017 8:11 PM
[2017-07-25 20:29] VITALS: BP 128/78; PULSE 82; O2SAT 98
[2017-07-25] MEDS ORDERED: PEDICHW50 PO (21:30)
== END 2017-07-25 20:30 | disposition home or self-care (01) ==
LOC: C.EDB 18:25 → C.EDD 20:30
DX: R30.0 Dysuria (principal); D64.9 Anemia, unspecified; J45.909 Unspecified asthma, uncomplicated; Z85.030 Personal history of malignant carcinoid tumor of large intestine; Z79.899 Other long term (current) drug therapy; Z88.8 Allergy status to other drugs, medicaments and biological substances

== ENCOUNTER → 2017-08-09 | Outpatient (CLI) | payer OTHER ==
[~2017-08-09] MED LIST changes: -CEPH500C PO
[2017-08-09 18:46] LABS: GTGD 50 Grams
[2017-08-11 14:48] LABS: AFPTS GESTATIONAL AGE 16.1 WEEKS; AFPTS INSULIN DEP DIABETIC? NO; AFPTS MATERNAL WT 145 LBS; ALPHA-FETOPROTEIN RACE CAUCASIAN=W; HISTORY OF NTD NO; INHIBIN A 148 PG/ML; INHIBIN A MOM 0.85; REPEAT SAMPLE? NO; hCG MULTIPLE OF MEDIAN 1.21
== END | disposition home or self-care (01) ==
LOC: C.LAB1850 14:18
PROVIDERS: ATTEND Obstetrics & Gynecology
DX: Z34.81 Encounter for supervision of other normal pregnancy, first trimester (principal)

== ENCOUNTER 2017-10-24 16:15 | Outpatient (CLI) | payer OTHER ==
[~2017-10-24] VITALS: Ht 157.5 cm; Wt 69.0 kg
[2017-10-24 16:44] VITALS: Ht 157.5 cm; Wt 69.0 kg
== END 2017-10-24 17:14 | disposition home or self-care (01) ==
LOC: C.OPB 16:15 → C.LD 16:17 → C.OPB 17:14
PROVIDERS: ATTEND Obstetrics & Gynecology
DX: O26.892 Other specified pregnancy related conditions, second trimester (principal); N89.8 Other specified noninflammatory disorders of vagina; Z3A.27 27 weeks gestation of pregnancy

== ENCOUNTER → 2017-10-31 | Outpatient (CLI) | payer OTHER ==
[~2017-10-31] MED LIST changes: +KFLHP; +LEVO50TA PO; +METO10TA3; -OFLO0.3D4 OTL; +SYN25
== END | disposition home or self-care (01) ==
LOC: C.LABSPEC 18:40
PROVIDERS: ATTEND Obstetrics & Gynecology
DX: Z34.82 Encounter for supervision of other normal pregnancy, second trimester (principal)

== ENCOUNTER → 2017-11-06 | Outpatient (CLI) | payer OTHER ==
[~2017-11-06] MED LIST changes: -KFLHP; -LEVO50TA PO; -METO10TA3; -SYN25
== END | disposition home or self-care (01) ==
LOC: C.LAB1850 11:13
PROVIDERS: ATTEND Obstetrics & Gynecology
DX: O28.1 Abnormal biochemical finding on antenatal screening of mother (principal)

== ENCOUNTER 2017-12-17 18:21 | Outpatient (CLI) | payer OTHER ==
[~2017-12-17] VITALS: Ht 160 cm; Wt 72.7 kg
[2017-12-17 18:45] VITALS: Ht 160 cm; Wt 72.7 kg
[2017-12-17] MEDS ORDERED: SYN25 (18:45)
== END 2017-12-17 20:06 | disposition home or self-care (01) ==
LOC: C.LD 18:21 → C.OPB 18:21
PROVIDERS: ATTEND Obstetrics & Gynecology
DX: O26.893 Other specified pregnancy related conditions, third trimester (principal); R10.2 Pelvic and perineal pain; O99.283 Endocrine, nutritional and metabolic diseases complicating pregnancy, third trimester; E05.90 Thyrotoxicosis, unspecified without thyrotoxic crisis or storm; Z3A.34 34 weeks gestation of pregnancy; Z85.038 Personal history of other malignant neoplasm of large intestine

== ENCOUNTER → 2017-12-26 | Outpatient (CLI) | payer OTHER ==
[~2017-12-26] MED LIST changes: +SYN25
== END | disposition home or self-care (01) ==
LOC: C.LABSPEC 14:13
PROVIDERS: ATTEND Obstetrics & Gynecology
DX: Z34.83 Encounter for supervision of other normal pregnancy, third trimester (principal); Z3A.00 Weeks of gestation of pregnancy not specified

== ENCOUNTER 2018-01-07 19:18 | Outpatient (CLI) | payer OTHER ==
[~2018-01-07] VITALS: Ht 157.5 cm; Wt 73.5 kg
[2018-01-07 19:51] VITALS: Ht 157.5 cm; Wt 73.5 kg
--- NOTE | 2018-01-11 13:12 | EDITING REQUIRED CODING QUERY ---
DIAGNOSIS NEEDED To promote full compliance with coding requirements relating to patient care, physician participation is requested in all cases of medical coder uncertainty. Please assist us with the question(s) below: Coding Question: The patient received care in labor and delivery on 01/07/18 as noted within the record. Please document the diagnosis that is being addressed by the medication/treatment. Provider Response: DIAGNOSIS:check labor WEEKS GESTATION: 37 weeks Thank you for your assistance, Melony Lerma - Manager Costing
== END 2018-01-07 20:04 | disposition home or self-care (01) ==
LOC: C.LD 19:18 → C.OPB 19:18
PROVIDERS: ATTEND Obstetrics & Gynecology
DX: Z34.83 Encounter for supervision of other normal pregnancy, third trimester (principal)

== ENCOUNTER 2018-01-13 23:20 | Outpatient (CLI) | payer OTHER ==
[~2018-01-13] VITALS: Ht 157.5 cm; Wt 74.5 kg
[2018-01-14 00:05] VITALS: Ht 157.5 cm; Wt 74.5 kg
== END 2018-01-14 01:14 | disposition home or self-care (01) ==
LOC: C.OPB 23:20 → C.LD 23:20 → C.OPB 01-14 01:14
PROVIDERS: ATTEND Obstetrics & Gynecology
DX: O62.9 Abnormality of forces of labor, unspecified (principal); O99.283 Endocrine, nutritional and metabolic diseases complicating pregnancy, third trimester; E05.90 Thyrotoxicosis, unspecified without thyrotoxic crisis or storm; O99.511 Diseases of the respiratory system complicating pregnancy, first trimester; J45.909 Unspecified asthma, uncomplicated; Z22.330 Carrier of Group B streptococcus; Z3A.38 38 weeks gestation of pregnancy; Z86.010 Personal history of colon polyps

== ENCOUNTER 2018-01-17 21:03 | Outpatient (CLI) | payer OTHER ==
[~2018-01-17] VITALS: Ht 157.5 cm; Wt 74.5 kg
[2018-01-17 21:57] VITALS: Ht 157.5 cm; Wt 74.5 kg
== END 2018-01-17 23:05 | disposition home or self-care (01) ==
LOC: C.OPB 21:03 → C.LD 21:03 → C.OPB 23:05
PROVIDERS: ATTEND Obstetrics & Gynecology
DX: Z34.83 Encounter for supervision of other normal pregnancy, third trimester (principal); Z3A.39 39 weeks gestation of pregnancy

== ENCOUNTER 2018-01-21 03:18 | Inpatient (IN) | payer OTHER ==
[~2018-01-21] VITALS: Ht 157.5 cm; Wt 74.5 kg
[2018-01-21] MEDS ORDERED: PENICILLIN G POTASSIUM IV 6 MU in DEXTROSE 5% 250ML 250 ML IV ONE (03:45)
[2018-01-21 03:51] VITALS: Ht 157.5 cm; Wt 74.5 kg
[2018-01-21 04:03] LABS: HEMATOCRIT 37.8 % (37-47); HEMOGLOBIN 11.9 g/dL (12.0-16.0); MEAN CELL VOLUME 82.7 fL (80-100); MEAN PLATELET VOLUME 11.2 fL (7.4-10.4); PLATELET COUNT 183 K/uL (130-400); RED CELL DISTRIBUTION WIDTH CV 14.6 % (11.5-14.5); RED CELL DISTRIBUTION WIDTH SD 44.2 fL (36.4-46.3); WHITE BLOOD COUNT 15.17 K/uL (4.8-10.8)
[2018-01-21 04:18] LABS: MEAN CORPUSCULAR HGB CONC 31.5 g/dl (32-36)
[2018-01-21] MEDS: PENICILLIN G POTASSIUM IV 3 MU in DEXTROSE 5% 100ML 100 ML IV PRN ×3 (08:01→15:51)
[2018-01-21] MEDS ORDERED: ONDANSETRON INJ 2 MG/ML 2 ML VIAL ONE (08:46)
[2018-01-21] MEDS ORDERED: NURSING VERBAL MED ORDER ONE (09:00)
[2018-01-21] MEDS ORDERED: ONDANSETRON INJ 2 MG/ML 2 ML VIAL IV PRN ×2 (09:00→12:00)
[2018-01-21] MEDS ORDERED: LACTATED RINGER'S 1000ML 500 ML IV PRN ×2 (10:23→11:59)
[2018-01-21] MEDS ORDERED: OXYTOCIN 30 UNITS/500ML NSS IV PRN ×2 (10:30→16:30)
[2018-01-21] MEDS ORDERED: LACTATED RINGER'S 1000ML 1,000 ML IV SCH ×2 (10:42→16:30)
[2018-01-21] MEDS ORDERED: LACTATED RINGER'S 1000ML 1,000 ML IV PRN (10:42)
[2018-01-21] MEDS ORDERED: BUPIVACAINE 0.25% 30 ML VIAL ONE (11:19)
[2018-01-21] MEDS ORDERED: EpHEDrine SULFATE INJ 50 MG/ML AMP ONE (11:19)
[2018-01-21] MEDS ORDERED: FENTANYL CITRATE INJ 50 MCG/1 ML 2 ML VIAL ONE (11:20)
[2018-01-21] MEDS ORDERED: FENTANYL 2MCG/ML ROPIV 1.25MG/ML 100ML BAG EPI ONE (11:20)
[2018-01-21] MEDS ORDERED: NALOXONE HCL INJ 1 MG in SODIUM CHLORIDE 0.9% 1000ML 1,000 ML IV PRN (11:59)
[2018-01-21] MEDS ORDERED: NALOXONE HCL INJ 0.4 MG/1 ML VIAL/CARP IV PRN (12:00)
[2018-01-21] MEDS ORDERED: PROMETHAZINE HCL INJ 25 MG in SODIUM CHLORIDE 0.9% 50ML 50 ML IV PRN (12:00)
[2018-01-21] MEDS ORDERED: FENTANYL 2MCG/ML ROPIV 1.25MG/ML 100ML BAG EPI PRN (12:00)
[2018-01-21] MEDS ORDERED: NALBUPHINE HCL INJ 10 MG/ML AMP IV PRN (12:00)
[2018-01-21] MEDS ORDERED: DiphenhydrAMINE HCL 50 MG/ML VIAL IV PRN (12:00)
[2018-01-21] MEDS ORDERED: EpHEDrine SULFATE INJ 50 MG/ML AMP IV PRN (12:00)
[2018-01-21] MEDS ORDERED: HYDROCORTISONE ACETATE 25 MG SUPP PR PRN (16:30)
[2018-01-21] MEDS ORDERED: DIPHTHERIA/TETANUS/PERTUSSIS 0.5 ML SYR/VIAL IM. ONE (16:30)
[2018-01-21] MEDS ORDERED: BENZOCAINE 20% AER SPR 82.5 GM CAN EXT PRN (16:30)
[2018-01-21] MEDS ORDERED: SUPERCREAM 0.870 % 15GM JAR EXT PRN (16:30)
[2018-01-21] MEDS ORDERED: LANOLIN OINT EXT PRN (16:30)
[2018-01-21] MEDS ORDERED: OXYCODONE/ACETAMINOPHEN 5-325 TAB PO PRN (16:30)
--- NOTE | 2018-01-21 16:32 | Vaginal Delivery Summary ---
Vaginal Delivery Summary Jordyn is a who presented and was admitted in labor. She initially was managed expectantly without pain management at her request. Due to failure of progression, we ultimately needed to perform AROM of a forebag (at which time meconium was noted), plus pitocin augmentation. At that time the patient was also provided with epidural. She reached complete dilation and labored down until urge to push. She was then coached through a brief second stage until she delivered a healthy vigorous infant in the occiput anterior position. The right shoulder was anterior. There was no difficulty with delivery of shoulders or body. The infant was placed on the abdomen while cord was clamped and cut, then the infant was quickly taken to the warmer for suction given the meconium. Placenta delivered spontaneously. No lacerations requiring repair. The fundus was firm and lochia minimal after delivery.
--- NOTE | 2018-01-21 17:58 | Anesthesia Procedure Note ---
Anesthesia Epidural Removal Nt Date & Time Jan 21, 2018 at 17:58 Vital Signs Pain Intensity: 9.0 Notes Mental Status: alert / awake / arousable, participated in evaluation Nausea / Vomiting: adequately controlled Pain: adequately controlled Airway Patency, RR, SpO2: stable & adequate BP & HR: stable & adequate Hydration State: stable & adequate Neuraxial Anesthesia: was administered Anesthetic Complications: no major complications apparent, pt satisfied with anesthetic care Epidural: removed without complications, with tip intact
[2018-01-21] MEDS: ACETAMINOPHEN 325 MG TAB PO PRN (19:25)
[2018-01-21 20:00] VITALS: BP 135/70; PULSE 90; TEMP 36.9
[2018-01-21] MEDS: DOCUSATE SODIUM 100 MG CAP PO SCH (20:10)
[2018-01-22] VITALS: BP 116/73; PULSE 84; TEMP 36.5; O2SAT 96
[2018-01-22] MEDS: IBUPROFEN 600 MG TAB PO PRN ×2 (00:08→07:26)
[2018-01-22 03:20] VITALS: BP 114/69; PULSE 72; TEMP 36.7; O2SAT 97
[2018-01-22] MEDS: ACETAMINOPHEN 325 MG TAB PO PRN (03:24)
[2018-01-22 06:33] LABS: HEMATOCRIT 35.8 % (37-47); HEMOGLOBIN 11.9 g/dL (12.0-16.0)
--- NOTE | 2018-01-22 07:10 | Progress Note ---
Subjective Jan 22, 2018. Subjective conversation w/ patient, physical exam Ambulation: ambulating normally Voiding: no voiding problems Passing Gas: Yes Diet Tolerance: Regular Diet Lochia: Moderate Feeding Type: Bottle Feeding (breast and bottle until milk comes in) Pain: moderate, well controlled on meds Comment: seen and assessed at bedside; no acute events overnight Review of Systems Constitutional: No fever, No chills Respiratory: No cough, No shortness of breath Cardiac: No chest pain, No edema Abdomen: No nausea, No vomiting no headaches or calf pain Objective Vital Signs Date Time Temp Pulse Resp B/P (MAP) Pulse Ox O2 Delivery O2 Flow Rate FiO2 01/22/18 03:20 36.7 72 16 114/69 (84) 97 Room Air 01/22/18 00:00 36.5 84 18 116/73 (87) 96 Room Air 01/22/18 00:00 96 Room Air 01/21/18 20:00 Room Air 01/21/18 20:00 36.9 90 18 135/70 (91) Room Air Physical Exam General Appearance: WELL-APPEARING, WD/WN Respiratory/Chest: chest non-tender, lungs clear, normal breath sounds Cardiovascular: regular rate, rhythm, no edema, no murmur Abdomen: normal bowel sounds, non tender, soft Fundus: Firm, Non-Tender, Relation to Umbilicus (2 below) Extremities: normal range of motion, non-tender, normal inspection, no pedal edema, no calf tenderness Laboratory Results Last 24 Hours Test 01/22/18 06:18 Hemoglobin 11.9 g/dL Hematocrit 35.8 % Medications Current Inpatient Medications Medications (Trade) Dose Ordered Sig/[facility] Route Start Time Stop Time Status Last Admin Dose Admin Penicillin G Potassium 3 mu/ Dextrose 106 ml @ 100 mls/hr Q4H PRN IV 01/21/18 03:45 01/23/18 03:44 01/21/18 15:51 100 MLS/HR Ondansetron HCl (Zofran Inj) 4 mg Q6H PRN IV 01/21/18 09:00 02/20/18 08:59 Oxytocin (Pitocin IV) 30 units UD PRN IV 01/21/18 10:30 02/20/18 10:29 01/21/18 12:11 30 UNITS Lactated Ringer's 500 ml @ 999 mls/hr Q31M PRN IV 01/21/18 10:23 02/20/18 10:22 Lactated Ringer's 1,000 ml @ 125 mls/hr Q8H IV 01/21/18 10:42 01/23/18 10:41 01/21/18 14:06 125 MLS/HR Lactated Ringer's 1,000 ml @ 999 mls/hr Q1H1M PRN IV 01/21/18 10:42 02/20/18 10:41 Fentanyl/ Ropivacaine (Fentanyl 2MCG/ Ml/Ropivacaine 1.25MG/ML) 100 ml PRN PRN EPI 01/21/18 12:00 01/22/18 11:59 Naloxone HCl (Narcan Inj) 0.1 mg UD PRN IV 01/21/18 12:00 01/22/18 11:59 Lactated Ringer's 500 ml @ 999 mls/hr Q31M PRN IV 01/21/18 11:59 01/22/18 11:58 Ephedrine Sulfate (EpHEDrine SULFATE INJ) 10 mg Q5M PRN IV 01/21/18 12:00 01/22/18 11:59 Diphenhydramine HCl (Benadryl Inj) 25 mg Q6H PRN IV 01/21/18 12:00 01/22/18 11:59 Nalbuphine HCl (Nubain Inj) 5 mg Q10M PRN IV 01/21/18 12:00 01/22/18 11:59 Naloxone HCl 1 mg/ Sodium Chloride 1,002.5 ml @ 50 mls/hr Q20H3M PRN IV 01/21/18 11:59 01/22/18 11:58 Ondansetron HCl (Zofran Inj) 4 mg Q6H PRN IV 01/21/18 12:00 01/22/18 11:59 Promethazine HCl 25 mg/Sodium Chloride 51 ml @ 200 mls/hr Q6H PRN IV 01/21/18 12:00 01/22/18 11:59 Lactated Ringer's 1,000 ml @ 125 mls/hr Q8H IV 01/21/18 16:30 02/20/18 16:29 Oxytocin (Pitocin IV) 30 units UD PRN IV 01/21/18 16:30 4/24/18 16:29 Benzocaine (Dermoplast Aero Spr) 1 appln PRN PRN EXT 01/21/18 16:30 02/20/18 16:29 01/21/18 20:28 82.5 APPLN Cocaine HCl (Supercream 0.870% Cr) BID PRN EXT 01/21/18 16:30 02/04/18 16:29 Hydrocortisone Acetate (Anusol Hc Supp) 25 mg BID PRN MI 01/21/18 16:30 02/20/18 16:29 Lanolin (Lanolin Oint) PRN PRN EXT 01/21/18 16:30 02/20/18 16:29 Prenat Multivit/ Curb Machine Operator/Iron/Folic Ac ( Vitamin Tab) 1 tab DAILY PO 01/22/18 08:00 02/21/18 07:59 Ibuprofen (Motrin Tab) 600 mg Q4H PRN PO 01/21/18 16:30 02/20/18 16:29 01/22/18 00:08 600 MG Acetaminophen (Tylenol Tab) 650 mg Q6H PRN PO 01/21/18 16:30 02/20/18 16:29 01/22/18 03:24 650 MG Oxycodone/ Acetaminophen (Percocet 5-325mg Tab) 1 tab Q4H PRN PO 01/21/18 16:30 02/04/18 16:29 Docusate Sodium (coLACE CAP) 100 mg BID PO 01/21/18 20:00 02/20/18 19:59 01/21/18 20:10 100 MG Levothyroxine Sodium (Synthroid Tab) 50 mcg DAILYBB PO 01/22/18 07:30 02/21/18 07:29 Assessment and Plan Problem List Medical Problems: (1) Biliary obstruction Status: Acute (2) Dysuria Status: Acute Post- Day#: 1 Continue Routine Care: 32 yo PPD 1 s/p pt doing well clinically Continue routine care: encourage ambulation, breast feeding Pain control with rx prn Home likely tomorrow Resident Physician Supervision Note: I interviewed and examined the patient. Discussed with Dr. Aguilera and agree with findings and plan as documented in the note. Any exceptions or clarifications are listed here: [None] Documented By: Mikala Underwood Resident Tracking Resident Involvement: Resident Care Provided Care Provided: OB Delivery
[2018-01-22 07:20] VITALS: BP 121/79; PULSE 82; TEMP 36.6; O2SAT 99
[2018-01-22] MEDS: LEVOTHYROXINE 50 MCG TAB PO SCH (07:26)
[2018-01-22] MEDS: PRENATAL VITAMIN TAB PO SCH (08:50)
[2018-01-22] MEDS: DOCUSATE SODIUM 100 MG CAP PO SCH ×2 (08:51→19:57)
--- NOTE | 2018-01-22 10:49 | Discharge Instructions ---
Discharge Instructions Date of Service Jan 22, 2018. Admission Reason for Admission: Labor Check Discharge Discharge Diagnosis / Problem: s/p Discharge Goals Goal(s): Routine recovery after delivery Medications Continue Dispensed Medications: supercream, dermaplast, tucks, lansinoh Activity Recommendations Activity Limitations: per Instructions/Follow-up section . Instructions / Follow-Up Instructions / Follow-Up ACTIVITY RECOMMENDATIONS: * Gradual return to full activity over the next 2-3 weeks. * No lifting - nothing heavier than baby over the next 2-3 weeks. * Do not engage in vigorous exercise, sexual activity or sports until cleared by your physician. * Do not drive or operate any motorized equipment until cleared by your physician. * You may shower/bathe daily. MEDICATIONS: For discomfort or pain, you may use Acetaminophen (Tylenol), Ibuprofen (Advil), or Naproxen (Aleve) following the package directions. For constipation you may use Colace following the package directions. BREAST CARE: If you are not breast feeding: * Wear a supportive bra 24 hours a day for one to two weeks. * Avoid stimulating your breasts and nipples as much as possible during the first few weeks after delivery. * When taking a shower, have the warm water hit your back, not breasts. * When your breasts feel full, apply ice packs. Usually three to four times a day helps ease the discomfort. * Take a mild pain medication (Tylenol / Motrin) when you are uncomfortable. If breast feeding: * Use breast milk to lubricate nipples. Lansinoh cream may be used for sore nipples. You do not need to remove cream prior to breast feeding. If using a different brand of cream, check the label for directions regarding removal of cream prior to nursing. * Wear a supportive bra. * If having problems with breasts or breast feeding, call a air quality consultant or your health care provider. EPISIOTOMY CARE: After delivery, if you have an episiotomy (stitches), the following steps will ease discomfort and aid healing. * For the first 24 hours after delivery, place ice packs next to your episiotomy to help reduce swelling. * After the first 24 hour-period, sitz baths, either portable or in the tub, are suggested. A shower with a shower arm sprayed over the episiotomy may be comforting. * Inna care should be done after each voiding and bowel movement. Squirt warm water from a plastic bottle over the perineum (region of the body between the anus and urinary opening) and pat dry. * Use Dermoplast to ease discomfort. Shake container. [place] directly over the episiotomy. Place a Tucks on a clean sanitary pad next to your episiotomy. SPECIAL CARE INSTRUCTIONS: When you are discharged from the hospital, it is important for you to follow the instructions listed below: * During the first week at home, you should be able to care for yourself and your baby. In addition, the usual light household activities are encouraged. * Limit your activities to the way you feel. Do not try to clean the house or move furniture. Be sensible. * If you actively engage in sports and have done so up until the time of your delivery, you may resume these activities as soon as you feel able. This may take up to one month or even longer. Use good judgment. * Continue to take your vitamins for at least six weeks after the of your baby. * Your diet need not be limited unless you were on a special diet before your delivery. Breast-feeding mothers need around 2500 calories per day and at least 64-80 ounces of fluid per day (8 to 10 glasses). * You should eat foods from the four major food groups. Crash diets or fad diets are to be avoided. Eating lean meats, fresh fruits and vegetables, low-fat dairy products, high fiber foods and a regular exercise program, will help you get back to your pre- weight without putting your health at risk. * Constipation is sometimes a problem after delivery. Take a mild laxative as needed. If breast feeding, Milk of Magnesia is acceptable to use. You may use a suppository or Fleets enema if no episiotomy. * A daily shower or tub bath is suggested. Be sure to thoroughly and gently dry the perineum. * A bloody vaginal discharge will usually continue until around four weeks post . A small amount of bleeding may continue for as long as six weeks. Vaginal discharge changes from the bright red bleeding after delivery to pink then brownish and finally yellowish-pink before becoming white and disappearing. * Bleeding may increase with activity. Your first period may come in 4-8 weeks. If you are breast feeding, your period may be delayed even longer. * [place] (sex) can begin whenever both you and your partner feel comfortable and do not have any form of genital infection. It is recommended that you wait at least six weeks for internal and external healing to occur. If you have questions, please talk to your health care practitioner. A condom should be used to prevent infection and . * Foreplay, gentle intercourse and lubrication is very important the first several times to prevent pain. A water-based lubricant such as K-Y jelly or Astroglide may be used. * If you have RH negative blood and your baby is RH positive, you will receive RHOGAM by injection prior to discharge. The nurse will give you a card to keep with you that has the date and place that you received RHOGAM after delivery. * During your care, you had a Rubella screen done to check for the presence of rubella antibodies in your blood. If your test was negative, you will receive a Rubella vaccine prior to discharge. This vaccine may cause a fever, soreness at the injection site and flu-like symptoms. If these symptoms persist, notify your health care practitioner. is not advised for one month after a Rubella vaccine. * Verbalizes understanding of car seat law as reviewed with patient nursing. * Car Seat hand-out given and reviewed with patient by nursing. * Shaken baby information reviewed with patient by nursing. Call you doctor if: * Heavy bleeding (saturating several pads an hour) or passing clots the size of your fist. * A fever >101 degrees F (38.3 degrees C) on two occasions four hours apart and /or chills. * Unusual pain in the pelvic or vaginal areas. * "Baby Blues" lasting longer than two weeks. If you have any questions or concerns, call your health care practitioner at . FOLLOW UP VISIT: * Please call the office at to schedule a 6 week examination. It is important you keep this appointment. It is important for you to make arrangements for either yearly or twice yearly check-ups thereafter. Current Hospital Diet Patient's current hospital diet: Regular OB Diet Discharge Diet Recommended Diet: Regular OB Diet Pending Studies Studies pending at discharge: no Medical Emergencies . Who to Call and When: Medical Emergencies: If at any time you feel your situation is an emergency, please call 911 immediately. . Non-Emergent Contact Non-Emergency issues call your: [facility] . . "Provider Documentation" section prepared by Nina Aguilera. .
[2018-01-22 13:28] VITALS: BP 119/76; PULSE 88; TEMP 36.7; O2SAT 98
[2018-01-22 16:05] VITALS: BP 110/68; PULSE 76; TEMP 37.1
[2018-01-22 23:15] VITALS: BP 134/76; PULSE 71; TEMP 36.7
[2018-01-23 07:38] VITALS: BP 128/78; PULSE 80; TEMP 36.6
--- NOTE | 2018-01-23 07:42 | Progress Note ---
Subjective Jan 23, 2018. Subjective conversation w/ patient, physical exam Ambulation: ambulating normally Voiding: no voiding problems Passing Gas: Yes Diet Tolerance: Regular Diet Lochia: Small Feeding Type: Breast Feeding (and bottle until more breast milk comes in) Pain: minimal, controlled with meds Comment: seen and assessed at bedside; no acute events overnight Review of Systems Constitutional: No fever, No chills Respiratory: No cough, No shortness of breath Cardiac: No chest pain, No edema Abdomen: No nausea, No vomiting no headaches or calf pain Objective Vital Signs Date Time Temp Pulse Resp B/P (MAP) Pulse Ox O2 Delivery O2 Flow Rate FiO2 01/22/18 23:15 36.7 71 18 134/76 (95) 01/22/18 23:15 Room Air 01/22/18 16:05 37.1 76 20 110/68 (82) Room Air 01/22/18 16:05 Room Air 01/22/18 13:28 36.7 88 18 119/76 (90) 98 Room Air Physical Exam General Appearance: WELL-APPEARING, NO APPARENT DISTRESS Respiratory/Chest: chest non-tender, lungs clear, normal breath sounds Cardiovascular: regular rate, rhythm, no murmur Abdomen: normal bowel sounds, non tender, soft Fundus: Firm, Non-Tender, Relation to Umbilicus (2 below) Extremities: normal range of motion, non-tender, normal inspection, no calf tenderness, + pedal edema (trace bilat) Laboratory Results Last Resulted 01/21/18 03:52 01/22/18 06:18 Medications Current Inpatient Medications Medications (Trade) Dose Ordered Sig/[place] Route Start Time Stop Time Status Last Admin Dose Admin Ondansetron HCl (Zofran Inj) 4 mg Q6H PRN IV 01/21/18 09:00 02/20/18 08:59 Oxytocin (Pitocin IV) 30 units UD PRN IV 01/21/18 10:30 02/20/18 10:29 01/21/18 12:11 30 UNITS Lactated Ringer's 500 ml @ 999 mls/hr Q31M PRN IV 01/21/18 10:23 02/20/18 10:22 Lactated Ringer's 1,000 ml @ 125 mls/hr Q8H IV 01/21/18 10:42 01/23/18 10:41 01/21/18 14:06 125 MLS/HR Lactated Ringer's 1,000 ml @ 999 mls/hr Q1H1M PRN IV 01/21/18 10:42 02/20/18 10:41 Lactated Ringer's 1,000 ml @ 125 mls/hr Q8H IV 01/21/18 16:30 02/20/18 16:29 Oxytocin (Pitocin IV) 30 units UD PRN IV 01/21/18 16:30 02/20/18 16:29 Benzocaine (Dermoplast Aero Spr) 1 appln PRN PRN EXT 01/21/18 16:30 02/20/18 16:29 01/21/18 20:28 82.5 APPLN Cocaine HCl (Supercream 0.870% Cr) BID PRN EXT 01/21/18 16:30 02/04/18 16:29 Hydrocortisone Acetate (Anusol Hc Supp) 25 mg BID PRN MS 01/21/18 16:30 02/20/18 16:29 Lanolin (Lanolin Oint) PRN PRN EXT 01/21/18 16:30 02/20/18 16:29 Prenat Multivit/ [place]/Iron/Folic Ac ( Vitamin Tab) 1 tab DAILY PO 01/22/18 08:00 02/21/18 07:59 01/22/18 08:50 1 TAB Ibuprofen (Motrin Tab) 600 mg Q4H PRN PO 01/21/18 16:30 02/20/18 16:29 01/22/18 07:26 600 MG Acetaminophen (Tylenol Tab) 650 mg Q6H PRN PO 01/21/18 16:30 02/20/18 16:29 01/22/18 03:24 650 MG Oxycodone/ Acetaminophen (Percocet 5-325mg Tab) 1 tab Q4H PRN PO 01/21/18 16:30 02/04/18 16:29 Docusate Sodium (coLACE CAP) 100 mg BID PO 01/21/18 20:00 02/20/18 19:59 01/22/18 19:57 100 MG Levothyroxine Sodium (Synthroid Tab) 50 mcg DAILYBB PO 01/22/18 07:30 02/21/18 07:29 01/22/18 07:26 50 MCG Assessment and Plan Problem List Medical Problems: (1) Biliary obstruction Status: Acute (2) Dysuria Status: Acute Post- Day#: 2 Continue Routine Care: 32yoF PPD 2 s/p Continue routine care encourage ambulation and breast feeding Discharge instructions reviewed Resident Physician Supervision Note: I interviewed and examined the patient. Discussed with Dr. Wood and agree with findings and plan as documented in the note. Any exceptions or clarifications are listed here: [None] Documented By: Ishaan Puga Resident Tracking Resident Involvement: Resident Care Provided Care Provided: OB Delivery
[2018-01-23] MEDS: LEVOTHYROXINE 50 MCG TAB PO SCH (07:45)
[2018-01-23] MEDS: DOCUSATE SODIUM 100 MG CAP PO SCH (08:41)
[2018-01-23] MEDS: PRENATAL VITAMIN TAB PO SCH (08:41)
[2018-01-23 08:45] VITALS: O2SAT 96
[2018-01-23 10:30] VITALS: BP_DIAS 78; PULSE 80; TEMP 36.6
== END 2018-01-23 10:50 | disposition home or self-care (01) | DRG 775 ==
LOC: C.OPB 03:18 → C.LD 03:18 → C.OPB 16:14 → C.LD 16:14 → C.OBG 19:46
PROVIDERS: ADMIT Obstetrics & Gynecology; ATTEND Obstetrics & Gynecology
PROC: 10E0XZZ Delivery of Products of Conception, External Approach (ICD-10-PCS; principal; 2018-01-21)
DX: O77.0 Labor and delivery complicated by meconium in amniotic fluid (principal); Z3A.39 39 weeks gestation of pregnancy; Z37.0 Single live birth

== ENCOUNTER → 2018-02-02 | Outpatient (CLI) | payer OTHER | END | disposition home or self-care (01) | LOC: C.LAB1850 14:51 | PROVIDERS: ATTEND Internal Medicine Endocrinology, Diabetes & Metabolism | DX: Z85.038 Personal history of other malignant neoplasm of large intestine (principal); E05.90 Thyrotoxicosis, unspecified without thyrotoxic crisis or storm ==

== ENCOUNTER 2018-03-22 21:18 | Emergency (ER) | payer OTHER ==
[~2018-03-22] VITALS: Ht 160 cm; Wt 68.0 kg
[2018-03-22 21:22] VITALS: Ht 160 cm; Wt 68.0 kg
[2018-03-22] MEDS ORDERED: LEVO50TA PO (22:08)
[2018-03-22] MEDS ORDERED: METO10TA3 (22:08)
[2018-03-22] MEDS ORDERED: KFLHP (22:08)
--- NOTE | 2018-03-22 22:39 | EMERGENCY ROOM VISIT NOTE ---
History First contact with patient: 21:40 Chief Complaint: OTHER COMPLAINT Stated Complaint: BREAST TENDERNESS, MASTITSIS History of Present Illness The patient is a 32 year old female who presents to the Emergency Room with complaints of bilateral breast tenderness. The patient states that she believes she has mastitis. She states she has had this in the past with other births. She gave in December. She saw Dr. Underwood for her regular visit on the of this month and was prescribed Keflex but did not start the medication at that time because she was feeling okay. She has been taking Keflex for the past 8 days and has been weaning off of pumping because she no longer wants to breast-feed. She states that both of her breasts are tender and feel hard. She denies any fevers or systemic symptoms. She reports she has also been taking bromocriptine which was prescribed to her after a previous . She reports she has a visit with AUTO SERVICE WRITER scheduled for tomorrow. Review of Systems A complete 10 point review of systems was reviewed with the patient with pertinent positives and negatives as per history of present illness. All else were negative. Past Medical/Surgical History Medical Problems: (1) 38 weeks gestation of (2) 39 weeks gestation of (3) Abdominal pain (4) Abdominal pain (5) Acute gastroenteritis (6) Acute gastroenteritis (7) Anemia (8) Asthma (9) check labor (10) Constipation (11) Diarrhea (12) First trimester bleeding (13) Folliculitis (14) Gastroenteritis (15) Nausea and vomiting in adult (16) Normal labor (17) Other specified complication, antepartum (18) Pelvic pressure in (19) Rectal bleeding (20) Right upper quadrant abdominal pain (21) Vomiting (22) Vomiting Surgical Problems: (1) Cholelithiasis (2) Nausea and vomiting of , antepartum (3) with 37 weeks completed gestation (4) Status post tonsillectomy and adenoidectomy (5) Surgery for colon cancer Family History Cancer Diabetes mellitus Heart disease Hypertension Social History Smoking Status: Never Smoker Alcohol Use: none Drug Use: none Marital Status: Housing Status: lives with family Occupation Status: employed Current/Historical Medications Scheduled Levothyroxine Sodium (Synthroid), 50 MCG PO Q2D Pediatric Multiple Vitamin W/ ([place] Chewable), 1 TAB PO QAM Scheduled PRN Albuterol Sulfate (Proair Respiclick), 1-2 PUFFS INH Q6H PRN for SOB/Wheezing Mometasone Furoate-Formoterol (Dulera 100/5 Mcg), 1 PUFF INH BID PRN for Shortness of Breath Miscellaneous Medications Cephalexin Monohydrate (Cephalexin) Metoclopramide HCl (Metoclopramide HCl) Physical Exam Vital Signs Date Time Temp Pulse Resp B/P (MAP) Pulse Ox O2 Delivery O2 Flow Rate FiO2 03/22/18 22:53 36.7 71 21 124/66 97 03/22/18 21:22 36.7 70 20 124/66 96 Room Air Physical Exam VITALS: Vitals are noted on the nurse's note and reviewed by myself. Vital signs stable. GENERAL: This is a 32-year-old female, in no acute distress, nondiaphoretic, well-developed well-nourished. HEART: Regular rate and rhythm without murmurs gallops or rubs. LUNGS: Clear to auscultation bilaterally without wheezes, rales or rhonchi. BREASTS: Bilateral breasts feel engorged and there are tender to palpation, especially along the medial aspects. There is no erythema or evidence of abscess. No drainage. They are slightly warm to touch. NEURO: Patient was alert and oriented to person place and time. Medical Decision & Procedures Medical Decision Differential diagnosis includes mastitis, breast engorgement, breast abscess, among others. The patient was evaluated as above. She presents complaining of discomfort of bilateral breasts. Patient has been on 8 days of Keflex for presumed mastitis. On exam, the patient does not seem to have mastitis. There is no redness of the breasts. There are no fevers or systemic symptoms. Her breasts are engorged bilaterally. I feel that her discomfort is likely secondary to the fact that she is not pumping as much over the past few days. She does have an appointment scheduled with [employer]O SERVICE WRITER in the morning. I discussed possibly putting the patient on Bactrim versus waiting for her appointment in the morning and she prefers to wait and discuss with her AUTO SERVICE WRITER. She verbalized understanding of my assessment and treatment plan and was discharged home in good condition. Medication Reconcilliation Current Medication List: was personally reviewed by me Blood Pressure Screening Patient's blood pressure: Normal blood pressure Impression Primary Impression: Breast engorgement Departure Information Dispostion Home / Self-Care Condition GOOD Referrals Sathish Sands M.D. (PCP) Citlali Metzgre D.O. Patient Instructions My [facility] Additional Instructions Follow-up with your AUTO SERVICE WRITER tomorrow as scheduled for recheck and further treatment. As discussed, you can continue to use [id number] ibuprofen, Tylenol, ice packs and warm compresses as needed for discomfort. Return here for fevers, increasing redness/swelling, or other new/concerning symptoms.
[2018-03-22 22:53] VITALS: BP 124/66; PULSE 71; TEMP 36.7; O2SAT 97
== END 2018-03-22 22:54 | disposition home or self-care (01) ==
LOC: C.EDB 21:19 → C.EDC 22:54
DX: N64.59 Other signs and symptoms in breast (principal); J45.909 Unspecified asthma, uncomplicated; Z79.899 Other long term (current) drug therapy

== ENCOUNTER → 2018-06-21 | Outpatient (CLI) | payer OTHER ==
[~2018-06-21] MED LIST changes: +KFLHP; +LEVO50TA PO; -LEVO50TA6 PO; +METO10TA3; -SYN25
--- NOTE | 2018-06-21 15:25 | DIAGNOSTIC IMAGING REPORT ---
RIGHT HAND 3 VIEWS CLINICAL HISTORY: Right hand pain. FINDINGS: 3 views of the right hand are obtained. No prior studies are available for comparison at the time of dictation. The skeletal structures are well mineralized. No fracture is seen. The joint spaces of the hand are well-maintained. No erosive disease is identified. The overlying soft tissues are within normal limits. IMPRESSION: Unremarkable radiographic assessment of the right hand. Electronically signed by: Ori Key M.D. 06/21/2018 3:24 PM Dictated Date/Time: 06/21/2018 3:23 PM
--- NOTE | 2018-06-21 15:27 | DIAGNOSTIC IMAGING REPORT ---
LEFT FOOT 3 VIEWS CLINICAL HISTORY: Left foot pain. FINDINGS: 3 views the left foot are obtained. No prior studies are available for comparison at the time of dictation. The skeletal structures are well mineralized. No fracture is seen. The joint spaces of the foot are well-maintained. A bone island is incidentally noted in the navicular. The overlying soft tissues are normal in appearance. IMPRESSION: Unremarkable radiographic assessment of the left foot. Electronically signed by: Ori Key M.D. 06/21/2018 3:25 PM Dictated Date/Time: 06/21/2018 3:24 PM
== END | disposition home or self-care (01) ==
LOC: C.RAD 14:32
PROVIDERS: ATTEND Physician Assistant Medical
DX: M79.641 Pain in right hand (principal); E05.90 Thyrotoxicosis, unspecified without thyrotoxic crisis or storm; Z85.038 Personal history of other malignant neoplasm of large intestine; S99.922S Unspecified injury of left foot, sequela; X58.XXXS Exposure to other specified factors, sequela